=== PATIENT | female | born 1960 | race Caucasian/White ===

== ENCOUNTER 2017-12-02 17:24 | Emergency (ER) | payer OTHER ==
[2017-12-02] MEDS ORDERED: IBUPROFEN 400 MG TAB ONE (17:55)
[2017-12-02] MEDS ORDERED: HYDROCODONE/APAP 7.5/325 MG TAB ONE (18:10)
--- NOTE | 2017-12-02 18:51 | RAD REPORT ---
EXAM DESCRIPTION: RAD - Foot Left 3 View - 12/02/2017 6:26 pm CLINICAL HISTORY: Pain;Swelling COMPARISON: None FINDINGS: Mild hallux valgus is noted. Moderate soft tissue swelling is seen along the dorsum of the midfoot. A large plantar calcaneal spurs seen. No acute fracture is discerned.
[2017-12-02 18:52] LABS: Absolute Lymphocytes (CBC) 1.3 K/uL (0.7-4.9); Absolute Monocytes 0.9 K/uL (0.1-1.3); Absolute Neutrophil 7.6 K/uL (1.8-8.0); Basophils % 0.6 % (0-1.3); Eosinophils % 1.7 % (0-4.4); Hematocrit 45.3 % (36.0-45.0); Lymphocytes % 13.4 % (15.3-44.8); MCH 32.9 pg (27.0-35.0); MCV 97.7 fL (80-100); MPV 7.3 fL (7.6-11.3); Monocytes % 8.7 % (3.3-12.3); RBC Red Blood Cell Count 4.64 M/uL (3.86-4.86)
[2017-12-02 19:02] LABS: Potassium 3.5 mmol/L (3.5-5.1)
--- NOTE | 2017-12-02 19:27 | EDPHYS ---
Physician Documentation [facility] Name: Mckenna Ross Age: 57 yrs Sex: Female : 1960 Arrival Date: 12/02/2017 Time: 17:26 Bed 19 Private MD: Aury Pollock R ED Physician Ethan Morales HPI: 12/02 17:57 This 57 yrs old Female presents to ER via Ambulatory with complaints of Feet cp Swelling. 17:57 The patient presents with pain, that is acute, swelling, tenderness. The complaints cp affect the left foot. 17:57 Context: resulted from an unknown cause, Mechanism of Injury: Unknown the patient can cp fully bear weight, the patient is able to ambulate. 17:57 Onset: The symptoms/episode began/occurred 3 day(s) ago. Associated signs and symptoms: cp Pertinent positives: swelling, warmth, Pertinent negatives: calf tenderness, fever. Severity of symptoms: in the emergency department the symptoms are unchanged, despite home interventions. Historical: - Allergies: 17:36 Ativan; hb 17:36 Levaquin; hb 17:36 PENICILLINS; hb - PMHx: 17:36 High Cholesterol; Hypothyroidism; hb - PSHx: 17:36 Gastric Sleeve; hb - Immunization history:: Adult Immunizations up to date. - Social history:: Smoking status: Patient uses tobacco products, smokes one-half pack cigarettes per day. - Ebola Screening: : No symptoms or risks identified at this time. ROS: 18:00 Constitutional: Negative for body aches, chills, fever, poor PO intake. cp 18:00 Eyes: Negative for injury, pain, redness, and discharge. cp 18:00 ENT: Negative for drainage from ear(s), ear pain, sore throat, difficulty swallowing, difficulty handling secretions. 18:00 Cardiovascular: Negative for chest pain, edema, palpitations. 18:00 Respiratory: Negative for cough, shortness of breath, wheezing. 18:00 Abdomen/GI: Negative for abdominal pain, nausea, vomiting, and diarrhea, black/tarry stool, rectal bleeding. 18:00 MS/extremity: Positive for pain, of the dorsum left foot, Negative for injury or acute deformity, decreased range of motion, paresthesias. 18:00 Skin: Positive for ecchymosis, erythema, swelling, of the dorsum left foot. 18:00 Neuro: Negative for dizziness, headache, weakness. Exam: 18:07 Constitutional: The patient appears in no acute distress, alert, awake, non-toxic, well cp developed, well nourished. 18:07 Head/Face: Normocephalic, atraumatic. cp 18:07 Eyes: Periorbital structures: appear normal, Conjunctiva: normal, no exudate, no injection, Lids and lashes: appear normal, bilaterally. 18:07 ENT: External ear(s): are unremarkable, Nose: is normal, Mouth: is normal, Posterior pharynx: is normal, airway is patent. 18:07 Chest/axilla: Inspection: normal. 18:07 Cardiovascular: Rate: normal, Rhythm: regular. 18:07 Respiratory: the patient does not display signs of respiratory distress, Respirations: normal, no use of accessory muscles, no retractions, no splinting, no tachypnea. 18:07 Abdomen/GI: Exam negative for discomfort, distension, guarding, Inspection: abdomen appears normal. 18:07 Musculoskeletal/extremity: Extremities: grossly normal except: noted in the dorsum of left foot: ecchymosis, erythema, pain, swelling, tenderness, There is no evidence of decreased ROM, deformity, open wounds, Perfusion: the extremity is pink, DVT Exam: No signs of deep vein thrombosis. Vital Signs: 17:35 BP 137 / 82; Pulse 88; Resp 18; Temp 97.9; Pulse Ox 100% on R/A; Pain 9/10; hb 18:30 BP 135 / 78; Pulse 74; Resp 16; Pulse Ox 97% on R/A; Pain 4/10; em MDM: 17:37 Patient medically screened. cp 18:00 Differential diagnosis: fracture, sprain, arthritis, gout, cellulitis. cp 19:25 Data reviewed: vital signs, nurses notes, lab test result(s), radiologic studies, plain cp films. 19:25 Test interpretation: by ED physician or midlevel provider: plain radiologic studies. cp Counseling: I had a detailed discussion with the patient and/or guardian regarding: the historical points, exam findings, and any diagnostic results supporting the discharge/admit diagnosis, lab results, radiology results, the need for outpatient follow up, a family practitioner, to return to the emergency department if symptoms worsen or persist or if there are any questions or concerns that arise at home. Response to treatment: the patient's symptoms have mildly improved after treatment, and as a result, I will discharge patient. 12/02 18:31 Order name: CBC with Diff; Complete Time: 18:56 cp 12/02 18:57 Interpretation: Normal except: HGB 15.3; HCT 45.3; MPV 7.3; HANS% 75.6; LYM% 13.4. 12/02 18:31 Order name: BMP; Complete Time: 19:08 12/02 19:08 Interpretation: Normal except: CL 108; GLUC 117; GFR 74. 12/02 17:51 Order name: XRAY Foot LEFT 3 View; Complete Time: 18:56 cp 12/02 18:57 Interpretation: Reviewed report. 12/02 19:26 Order name: Misc. Order: OUTLINE AREA OF ERYTHEMA; Complete Time: 20:09 12/02 19:26 Order name: Crutches; Complete Time: 20:09 12/02 19:26 Order name: Alexandro Wrap; Complete Time: 20:09 cp Administered Medications: 18:09 Not Given (Patient Refused): Ibuprofen 800 mg PO once em 18:10 Drug: [place] (7.5 mg-325 mg) 1 tabs Route: PO; em 19:02 Follow up: Response: No adverse reaction; Pain is decreased em Disposition: 12/03 07:12 Co-signature as Attending Physician, Ethan Morales MD. rn Disposition: 12/02/17 19:26 Discharged to Home. Impression: Pain in left foot. - Condition is Stable. - Discharge Instructions: Foot Pain. - Prescriptions for Clindamycin HCl 300 mg Oral Capsule - take 1 capsule by ORAL route every 6 hours for 7 days; 28 capsule. Tramadol 50 mg Oral Tablet - take 1 tablet by ORAL route every 8 hours as needed; 15 tablet. - Medication Reconciliation Form, Thank You Letter, Antibiotic Education, Prescription Opioid Use form. - Follow up: Aury Pollock MD; When: 48 Hours; Reason: Recheck today's complaints. - Problem is new. - Symptoms have improved. Signatures: Dispatcher [employer] Real Trent, ENGRAVER PANTOGRAPH ENGRAVER PANTOGRAPH em Ethan Morales MD MD rn Juan Carlos Kern PA PA cp Klaus Ramos, RN RN ao Mari Hauser RN RN Corrections: (The following items were deleted from the chart) 12/02 20:11 19:26 12/02/2017 19:26 Discharged to Home. Impression: Pain in left foot. Condition is ao Stable. Forms are Medication Reconciliation Form, Thank You Letter, Antibiotic Education, Prescription Opioid Use. Follow up: Aury Pollock; When: 48 Hours; Reason: Recheck today's complaints. Problem is new. Symptoms have improved. cp
--- NOTE | 2017-12-02 19:27 | ER ---
Nurse's Notes [facility] Name: Mckenna Ross Age: 57 yrs Sex: Female : 1960 Arrival Date: 12/02/2017 Time: 17:26 Bed 19 Private MD: Aury Pollock R Diagnosis: Pain in left foot Presentation: 12/02 17:35 Presenting complaint: Patient states: Left foot pain, swelling, and bruising x 3 days. hb Denies injury. Transition of care: patient was not received from another setting of care. Onset of symptoms is unknown. Risk Assessment: Do you want to hurt yourself or someone else? Patient reports no desire to harm self or others. Care prior to arrival: None. 17:35 Method Of Arrival: Ambulatory hb 17:35 Acuity: RAJNI 4 hb 17:57 Initial Sepsis Screen: Does the patient meet any 2 criteria? No. Patient's initial em sepsis screen is negative. Does the patient have a suspected source of infection? No. Patient's initial sepsis screen is negative. Historical: - Allergies: 17:36 Ativan; hb 17:36 Levaquin; hb 17:36 PENICILLINS; hb - PMHx: 17:36 High Cholesterol; Hypothyroidism; hb - PSHx: 17:36 Gastric Sleeve; hb - Immunization history:: Adult Immunizations up to date. - Social history:: Smoking status: Patient uses tobacco products, smokes one-half pack cigarettes per day. - Ebola Screening: : No symptoms or risks identified at this time. Screenin:54 Abuse screen: Denies threats or abuse. Nutritional screening: No deficits noted. em Tuberculosis screening: No symptoms or risk factors identified. Fall Risk None identified. Assessment: 17:40 General: Appears in no apparent distress. comfortable, Behavior is calm, cooperative. em Pain: Complains of pain in left foot Pain currently is 8 out of 10 on a pain scale. Neuro: Level of Consciousness is awake, alert, obeys commands, Oriented to person, place, time, situation. Cardiovascular: Capillary refill is > 3 seconds in bilateral toes. Respiratory: Airway is patent Respiratory effort is even, unlabored, Respiratory pattern is regular, symmetrical. GI: Abdomen is obese. Derm: Skin is intact, Skin is pink, warm \\T\\ dry. Musculoskeletal: Range of motion: intact in all extremities. 17:45 Reassessment: I agree with previous assessment. hb 18:00 Reassessment: Patient appears in no apparent distress at this time. pt refuse pain em medication, states, "it won't do anything". 18:10 Reassessment: Patient appears in no apparent distress at this time. JUAN LUIS Rangel notified em about pt refusing medication, new orders received. 19:20 Reassessment: Patient appears in no apparent distress at this time. Patient and/or ao family updated on plan of care and expected duration. Pain level reassessed. Patient is alert, oriented x 3, equal unlabored respirations, skin warm/dry/pink. Received report from Johnson CHAMPION. 20:10 Reassessment: Dc instructions given to patient. patient agree with the POC and to ao follow up with PCP. Patient has no questions at this time. Vital Signs: 17:35 BP 137 / 82; Pulse 88; Resp 18; Temp 97.9; Pulse Ox 100% on R/A; Pain 9/10; hb 18:30 BP 135 / 78; Pulse 74; Resp 16; Pulse Ox 97% on R/A; Pain 4/10; em ED Course: 17:26 Patient arrived in ED. sb2 17:26 Aury Pollock MD is Private Physician. sb2 17:35 Triage completed. hb 17:36 Arm band placed on right wrist. hb 17:37 Juan Carlos Kern PA is PHCP. cp 17:37 Ethan Morales MD is Attending Physician. cp 17:43 Real Harrison LVN is Primary Nurse. em 17:54 Patient has correct armband on for positive identification. Bed in low position. Call em light in reach. 17:54 No provider procedures requiring assistance completed. em 18:23 X-ray completed. Portable x-ray completed in exam room. Patient tolerated procedure ml well. 18:26 XRAY Foot LEFT 3 View In Process Unspecified. EDMS 18:40 Initial lab(s) drawn, by me, sent to lab. Inserted saline lock: 20 gauge in right em antecubital area, using aseptic technique. Blood collected. 19:26 Aury Pollock MD is Referral Physician. cp 20:10 IV discontinued, intact, bleeding controlled, No redness/swelling at site. Pressure ao dressing applied. Administered Medications: 18:09 Not Given (Patient Refused): Ibuprofen 800 mg PO once em 18:10 Drug: [place] (7.5 mg-325 mg) 1 tabs Route: PO; em 19:02 Follow up: Response: No adverse reaction; Pain is decreased em Outcome: 19:26 Discharge ordered by . cp 20:09 Discharged to home via wheelchair. ao 20:09 Condition: stable 20:09 Discharge instructions given to patient, Instructed on discharge instructions, follow up and referral plans. Demonstrated understanding of instructions, follow-up care, medications, wound care, crutch walking, Prescriptions given X 2. 20:11 Patient left the ED. ao Signatures: Dispatcher [employer] EDReal Cummins, APARTMENT LEASING MANAGER APARTMENT LEASING MANAGER Niki Bradford Corey, PA PA cp Ortiz, Alex RN RN Mari Vasquez RN RN Diane Hull sb2
[2017-12-02 20:38] VITALS: TEMP 97.9
[2017-12-02 20:39] VITALS: BP 135/78; O2SAT 97
== END 2017-12-02 20:11 | disposition home or self-care (01) ==
LOC: ER 17:24
DX: M79.672 Pain in left foot (principal); Z88.1 Allergy status to other antibiotic agents; Z88.0 Allergy status to penicillin; Z88.8 Allergy status to other drugs, medicaments and biological substances; F17.210 Nicotine dependence, cigarettes, uncomplicated
CPT/HCPCS: 36415; 80048; 85025; 99284

== ENCOUNTER 2017-12-08 19:26 | Emergency (ER) | payer OTHER ==
[2017-12-08 22:05] LABS: Absolute Lymphocytes (CBC) 2.4 K/uL (0.7-4.9); Absolute Monocytes 0.9 K/uL (0.1-1.3); Absolute Neutrophil 5.8 K/uL (1.8-8.0); Basophils % 1.3 % (0-1.3); Eosinophils % 2.6 % (0-4.4); Hematocrit 47.5 % (36.0-45.0); Lymphocytes % 25.6 % (15.3-44.8); MCH 32.8 pg (27.0-35.0); MCV 96.4 fL (80-100); MPV 7.1 fL (7.6-11.3); Monocytes % 9.2 % (3.3-12.3); RBC Red Blood Cell Count 4.92 M/uL (3.86-4.86)
[2017-12-08 22:11] LABS: Protime INR 0.93
[2017-12-08 22:34] LABS: ALT/SGPT 24 U/L (12-78); AST/SGOT 23 U/L (15-37); Albumin 3.3 g/dL (3.4-5.0); Alkaline Phosphatase 98 U/L (45-117); BUN Blood Urea Nitrogen 19 mg/dL (7-18); Bicarbonate 32 mmol/L (21-32); Bilirubin Direct < 0.1 mg/dL (0-0.2); Bilirubin Total 0.3 mg/dL (0.2-1.0); Glucose Level 95 mg/dL (74-106); Magnesium 2.4 mg/dL (1.8-2.4); NT PRO-BNP 70 pg/mL (<125); Protein, Total 7.9 g/dL (6.4-8.2); Sodium Level 140 mmol/L (136-145)
--- NOTE | 2017-12-08 22:38 | RAD REPORT ---
EXAM DESCRIPTION: VAS - Extrem Venous W Compress Chip - 12/08/2017 10:10 pm CLINICAL HISTORY: Bilateral leg pain COMPARISON: None. TECHNIQUE: Real-time sonographic evaluation of the bilateral lower extremity common femoral, superfi cial femoral, popliteal and posterior tibial veins was performed. FINDINGS: Normal compressibility, flow augmentation, phasic flow and spontaneous flow are identified in the left and right lower extremity common femoral, superficial femoral, popliteal and posterior t ibial veins. No intraluminal filling defects seen. IMPRESSION: No DVT in either lower extremity.
--- NOTE | 2017-12-08 22:40 | RAD REPORT ---
EXAM DESCRIPTION: VAS - Lower Extremity Arterial Bilat - 12/08/2017 10:10 pm CLINICAL HISTORY: Leg pain COMPARISON: None. TECHNIQUE: Grayscale and Doppler evaluation of the arterial tree performed. Waveforms were obtained along the length of each lower extremity. Visual inspection of the lower extremity arterial tree perf ormed. FINDINGS: Triphasic waveform pattern seen in the right lower extremity from common femoral through t he popliteal artery. A biphasic waveform pattern was seen at the right dorsalis pedis posterior tibia l arteries. Triphasic waveform pattern was seen along the entire length of the left lower extremity. No suspicious waveform pattern. No occlusion or focal flow restricting lesion identifiable. No suspic ious velocity value. IMPRESSION: No significant atherosclerotic changes identifiable. No occlusion or flow restricting le debbi.
[2017-12-08] MEDS ORDERED: FENTANYL CITR 100 MCG/2 ML ONE (23:12)
--- NOTE | 2017-12-08 23:26 | ER ---
Nurse's Notes [facility] Name: Mckenna Ross Age: 57 yrs Sex: Female : 1960 Arrival Date: 12/08/2017 Time: 19:28 Bed 14 Private MD: Diagnosis: Pain in unspecified foot-Bilateral Presentation: 12/08 19:33 Presenting complaint: Patient states: GLADYS foot pain and swelling since the when I la1 was here last and also pain behind my right knee, no known injury. Transition of care: patient was not received from another setting of care. Onset of symptoms was December 08, 2017. Risk Assessment: Do you want to hurt yourself or someone else? Patient reports no desire to harm self or others. Initial Sepsis Screen: Does the patient meet any 2 criteria? No. Patient's initial sepsis screen is negative. Does the patient have a suspected source of infection? No. Patient's initial sepsis screen is negative. Care prior to arrival: None. 19:33 Method Of Arrival: Wheelchair la1 19:33 Acuity: RAJNI 3 la1 Historical: - Allergies: 19:34 Ativan; la1 19:34 Levaquin; la1 19:34 PENICILLINS; la1 - PMHx: 19:34 High Cholesterol; Hypothyroidism; Hypertension; la1 - Immunization history:: Adult Immunizations up to date. - Social history:: Smoking status: Patient uses tobacco products, smokes one-half pack cigarettes per day. - Ebola Screening: : No symptoms or risks identified at this time. Screenin:50 Abuse screen: Denies threats or abuse. Denies injuries from another. Nutritional ao screening: No deficits noted. Tuberculosis screening: No symptoms or risk factors identified. Fall Risk None identified. Assessment: 20:51 General: Appears in no apparent distress. comfortable, Behavior is calm, cooperative, ao appropriate for age. Pain: Complains of pain in right leg and left leg Pain does not radiate. Pain currently is 8 out of 10 on a pain scale. Neuro: Level of Consciousness is awake, alert, Oriented to person, place, time, situation, Appropriate for age Mill Tender Warm Up are Moves all extremities. Full function Gait is unsteady, Speech is normal, Facial symmetry appears normal. Cardiovascular: Capillary refill < 3 seconds Patient's skin is warm and dry. Respiratory: Airway is patent Respiratory effort is even, unlabored, Respiratory pattern is regular, symmetrical. GI: Abdomen is non-distended. : No signs and/or symptoms were reported regarding the genitourinary system. EENT: No signs and/or symptoms were reported regarding the EENT system. Derm: Skin is intact, Skin is pink, warm \T\ dry. normal, Skin temperature is warm. Musculoskeletal: Circulation, motion, and sensation intact. Range of motion: intact in all extremities. 21:15 Reassessment: Ultrasound at bedside unable to start an IV at this moment. ao 22:10 Reassessment: Patient appears in no apparent distress at this time. Patient and/or ao family updated on plan of care and expected duration. Pain level reassessed. Patient is alert, oriented x 3, equal unlabored respirations, skin warm/dry/pink. 23:05 Reassessment: Patient appears in no apparent distress at this time. Patient and/or ao family updated on plan of care and expected duration. Pain level reassessed. Patient is alert, oriented x 3, equal unlabored respirations, skin warm/dry/pink. Waiting on Dispo irders. 23:49 Reassessment: Received an verbal order from Pasquale Kern to medicate patient with Toradol ao 30 if patient is not allergic to it. Patient to be discharge after Toradol is given. Vital Signs: 19:34 BP 123 / 74; Pulse 59; Resp 19; Temp 97.2(TE); Pulse Ox 95% ; Weight 124.74 kg; Height la1 5 ft. 6 in. (167.64 cm); 20:53 BP 109 / 66; Pulse 62; Resp 16; Pulse Ox 99% on R/A; Pain 0/10; ao 21:55 BP 113 / 60; Pulse 62; Resp 16; Pulse Ox 100% on R/A; ao 23:36 BP 108 / 59; Pulse 57; Resp 16; Pulse Ox 96% on R/A; Pain 0/10; ao 19:34 Body Mass Index 44.39 (124.74 kg, 167.64 cm) la1 ED Course: 19:28 Patient arrived in ED. al2 19:33 Triage completed. la1 19:34 Arm band placed on left wrist. la1 20:33 Klaus Ramos, TASHIA is Primary Nurse. ao 20:43 Juan Carlos Kern PA is PHCP. cp 20:43 Juan Carlos Baker MD is Attending Physician. cp 20:51 Patient has correct armband on for positive identification. Pulse ox on. NIBP on. ao 21:30 Inserted saline lock: 22 gauge in right forearm, using aseptic technique. ,using ao aseptic technique. By AMANDA Nascimento Blood collected. 21:43 X-ray completed. Portable x-ray completed in exam room. Patient tolerated procedure bb2 well. 21:56 XRAY Chest (1 view) In Process Unspecified. EDMS 22:10 US LE Arterial Bilateral In Process Unspecified. EDMS 22:10 US Extremity Venous W Compression Gladys In Process Unspecified. EDMS 23:25 Paul Bryan DPM is Referral Physician. cp 23:59 No provider procedures requiring assistance completed. IV discontinued, intact, ao bleeding controlled, No redness/swelling at site. Pressure dressing applied. Administered Medications: 23:10 Drug: fentaNYL (PF) 25 mcg Route: IVP; Site: right femoral; ao 23:58 Follow up: Response: No adverse reaction; Pain is unchanged, physician notified ao 23:58 Drug: TORadol 30 mg Route: IVP; Site: right forearm; ao 23:58 Follow up: Response: Medication administered at discharge. ao Outcome: 23:26 Discharge ordered by . cp 12/09 00:00 Discharged to home via wheelchair. ao Condition: stable Discharge instructions given to patient, Instructed on discharge instructions, follow up and referral plans. Demonstrated understanding of instructions, follow-up care, medications, Prescriptions given X 2. 00:00 Patient left the ED. ao Signatures: Dispatcher [employer] EDMS Jhonny Tinoco RN RN la1 Juan Carlos Kern PA PA cp Ortiz, Alex, RN RN ao Diana Francisco bb2 Debra Trent
--- NOTE | 2017-12-08 23:26 | EDPHYS ---
Physician Documentation [facility] Name: Mckenna Ross Age: 57 yrs Sex: Female : 1960 Arrival Date: 12/08/2017 Time: 19:28 Bed 14 Private MD: ED Physician Juan Carlos Baker HPI: 12/08 21:00 This 57 yrs old Female presents to ER via Wheelchair with complaints of Feet cp Swelling. 21:00 The patient presents with pain, swelling, tenderness. The complaints affect the right cp foot and left foot. Context: resulted from an unknown cause, the patient can fully bear weight, the patient is able to ambulate, with mild difficulty, Problem is a result from a previous injury: No. Associated signs and symptoms: Pertinent positives: ecchymosis of toes on left foot, Pertinent negatives calf tenderness, fever, warmth. 21:00 Severity of symptoms: in the emergency department the symptoms are unchanged, despite cp home interventions. 21:00 The patient has been recently seen at the [facility] Emergency cp Department, last week, for similar complaints labs were performed, X-rays were performed. Historical: - Allergies: 19:34 Ativan; la1 19:34 Levaquin; la1 19:34 PENICILLINS; la1 - PMHx: 19:34 High Cholesterol; Hypothyroidism; Hypertension; la1 - Immunization history:: Adult Immunizations up to date. - Social history:: Smoking status: Patient uses tobacco products, smokes one-half pack cigarettes per day. - Ebola Screening: : No symptoms or risks identified at this time. ROS: 21:05 Constitutional: Negative for body aches, chills, fever, poor PO intake. cp 21:05 Eyes: Negative for injury, pain, redness, and discharge. cp 21:05 ENT: Negative for drainage from ear(s), ear pain, sore throat, difficulty swallowing, difficulty handling secretions. 21:05 Cardiovascular: Negative for chest pain, edema, palpitations. 21:05 Respiratory: Negative for cough, shortness of breath, wheezing. 21:05 Abdomen/GI: Negative for abdominal pain, nausea, vomiting, and diarrhea. 21:05 MS/extremity: Positive for ecchymosis, swelling, of the right foot and left foot, Negative for injury or acute deformity. 21:05 Skin: Negative for cellulitis, rash. 21:05 Neuro: Negative for altered mental status, headache, weakness. 21:05 All other systems are negative. Exam: 21:12 Constitutional: The patient appears in no acute distress, alert, awake, cp non-diaphoretic, non-toxic, well developed, well nourished, obese. 21:12 Head/Face: Normocephalic, atraumatic. cp 21:12 Eyes: Periorbital structures: appear normal, Conjunctiva: normal, no exudate, no injection, Sclera: no appreciated abnormality, Lids and lashes: appear normal, bilaterally. 21:12 ENT: External ear(s): are unremarkable, Nose: is normal, Mouth: Lips: moist, Oral mucosa: moist, Posterior pharynx: is normal, airway is patent. 21:12 Neck: ROM/movement: is normal, is supple, without pain, no range of motions limitations, no nuchal rigidity. 21:12 Chest/axilla: Inspection: normal, Palpation: is normal, no crepitus, no tenderness. 21:12 Cardiovascular: Rate: normal, Rhythm: regular, Pulses: Pulses are 2+ in right radial artery and left radial artery. Heart sounds: murmur, not appreciated, rub, not appreciated, gallop, not appreciated, JVD: is not appreciated. 21:12 Respiratory: the patient does not display signs of respiratory distress, Respirations: normal, no use of accessory muscles, no retractions, no splinting, no tachypnea, labored breathing, is not present, Breath sounds: are clear throughout, no decreased breath sounds, no stridor, no wheezing. 21:12 Abdomen/GI: Inspection: obese Bowel sounds: active, all quadrants, Palpation: abdomen is soft and non-tender, in all quadrants. 21:12 Musculoskeletal/extremity: Extremities: grossly normal except: noted in the right foot and left foot: ecchymosis, swelling, tenderness, There is no evidence of deformity, erythema, Sensation intact. 21:12 Skin: cellulitis, is not appreciated, no rash present. 21:12 Neuro: Orientation: to person, place \T\ time. Mentation: lucid, able to follow commands, Cerebellar function: is grossly normal, Motor: moves all fours, strength is normal, Sensation: no obvious gross deficits. Vital Signs: 19:34 BP 123 / 74; Pulse 59; Resp 19; Temp 97.2(TE); Pulse Ox 95% ; Weight 124.74 kg; Height la1 5 ft. 6 in. (167.64 cm); 20:53 BP 109 / 66; Pulse 62; Resp 16; Pulse Ox 99% on R/A; Pain 0/10; ao 21:55 BP 113 / 60; Pulse 62; Resp 16; Pulse Ox 100% on R/A; ao 23:36 BP 108 / 59; Pulse 57; Resp 16; Pulse Ox 96% on R/A; Pain 0/10; ao 19:34 Body Mass Index 44.39 (124.74 kg, 167.64 cm) la1 MDM: 20:43 Patient medically screened. cp 21:00 Differential diagnosis: contusion, cellulitis, chf, kidney disease, PAD, DVT. cp 23:25 Data reviewed: vital signs, nurses notes, lab test result(s), EKG, radiologic studies, cp ultrasound. 23:25 Counseling: I had a detailed discussion with the patient and/or guardian regarding: the cp historical points, exam findings, and any diagnostic results supporting the discharge/admit diagnosis, lab results, radiology results, the need for outpatient follow up, a family practitioner, to return to the emergency department if symptoms worsen or persist or if there are any questions or concerns that arise at home. Response to treatment: the patient's symptoms have mildly improved after treatment, and as a result, I will discharge patient. 12/08 21:10 Order name: LFT's; Complete Time: 22:48 cp 12/08 21:10 Order name: Basic Metabolic Panel; Complete Time: 22:48 cp 12/08 21:10 Order name: CBC with Diff; Complete Time: 22:48 cp 12/08 21:10 Order name: Magnesium; Complete Time: 22:48 cp 12/08 21:10 Order name: NT PRO-BNP; Complete Time: 22:48 cp 12/08 21:10 Order name: PT-INR; Complete Time: 22:48 cp 12/08 20:53 Order name: US LE Arterial Bilateral; Complete Time: 22:48 cp 12/08 20:53 Order name: US Extremity Venous W Compression Chip; Complete Time: 22:48 cp 12/08 21:10 Order name: Ptt, Activated; Complete Time: 22:48 cp 12/08 21:10 Order name: Troponin (emerg Dept Use Only); Complete Time: 22:48 cp 12/08 21:10 Order name: XRAY Chest (1 view) 12/08 21:10 Order name: EKG; Complete Time: 21:10 12/08 21:10 Order name: Cardiac monitoring; Complete Time: 22:22 12/08 21:10 Order name: EKG - Nurse/Tech; Complete Time: 22:22 12/08 21:10 Order name: IV Saline Lock; Complete Time: 22:22 12/08 21:10 Order name: Labs collected and sent; Complete Time: 22:22 12/08 21:10 Order name: O2 Per Protocol; Complete Time: 22:22 12/08 21:10 Order name: O2 Sat Monitoring; Complete Time: 22:22 cp Administered Medications: 23:10 Drug: fentaNYL (PF) 25 mcg Route: IVP; Site: right femoral; ao 23:58 Follow up: Response: No adverse reaction; Pain is unchanged, physician notified ao 23:58 Drug: TORadol 30 mg Route: IVP; Site: right forearm; ao 23:58 Follow up: Response: Medication administered at discharge. ao Disposition: 12/08/17 23:26 Discharged to Home. Impression: Pain in unspecified foot - Bilateral. - Condition is Stable. - Discharge Instructions: Foot Pain. - Prescriptions for Tramadol 50 mg Oral Tablet - take 1 tablet by ORAL route every 8 hours as needed; 15 tablet. Mobic 7.5 mg Oral Tablet - take 1 tablet by ORAL route once daily take with food; 20 tablet. - Medication Reconciliation Form, Thank You Letter, Antibiotic Education, Prescription Opioid Use form. - Follow up: Paul Bryan DPM; When: 2 - 3 days; Reason: Recheck today's complaints. - Problem is an ongoing problem. - Symptoms have improved. Addendum: 12/11/2017 08:58 Co-signature as Attending Physician, Juan Carlos Baker MD I agree with the assessment and c fritz plan of care. Signatures: Dispatcher [employer] EDJuan Carlos Lewis MD MD cha Attema, Lee RN RN la1 Juan Carlos Kern PA PA cp Ortiz, Alex RN RN ao Corrections: (The following items were deleted from the chart) 12/08 23:59 21:10 Urine Dipstick-Ancillary ordered. cp ao 12/09 00:00 12/08 23:26 12/08/2017 23:26 Discharged to Home. Impression: Pain in unspecified foot - ao Bilateral. Condition is Stable. Forms are Medication Reconciliation Form, Thank You Letter, Antibiotic Education, Prescription Opioid Use. Follow up: Paul Bryan; When: 2 - 3 days; Reason: Recheck today's complaints. Problem is an ongoing problem. Symptoms have improved. cp
[2017-12-08] MEDS ORDERED: KETOROLAC 30 MG/ML INJ ONE (23:52)
[2017-12-09 00:30] VITALS: TEMP 97.2
[2017-12-09 00:33] VITALS: BP 108/59; O2SAT 96
--- NOTE | 2017-12-09 06:02 | EKG ---
Test Date: 2017-12-08 Test Time: 22:03:28 Grinder Operator Automatic: ZACARIAS MEASUREMENT RESULTS: Intervals: Rate: 49 NV: 198 QRSD: 80 QT: 464 QTc: 419 [place]: P: 23 NV: 198 QRS: 3 T: 16 INTERPRETIVE STATEMENTS: Sinus bradycardia Otherwise normal ECG Compared to ECG 12/26/2016 13:37:58 No significant changes Electronically Signed On 12-09-17 06:01:21 CDT by Mauri Meza
--- NOTE | 2017-12-09 08:27 | RAD REPORT ---
EXAM DESCRIPTION: Shaka Single View12/08/2017 9:55 pm CLINICAL HISTORY: Shortness of breath COMPARISON: December 2016 FINDINGS: The lungs appear clear of acute infiltrate. The heart is mildly enlarged IMPRESSION: No acute abnormalities displayed
--- NOTE | 2017-12-10 07:48 | EKG ---
Test Date: 2017-12-08 Test Time: 22:05:53 Brick Tester: ZACARIAS MEASUREMENT RESULTS: Intervals: Rate: 51 MI: 200 QRSD: 80 QT: 496 QTc: 457 [place]: P: 21 MI: 200 QRS: 1 T: 39 INTERPRETIVE STATEMENTS: Sinus bradycardia Otherwise normal ECG Compared to ECG 12/08/2017 22:03:28 No significant changes Electronically Signed On 12-10-17 07:45:35 CDT by Mauri Meza
== END 2017-12-09 | disposition home or self-care (01) ==
LOC: ER 19:26
DX: M79.672 Pain in left foot (principal); M79.671 Pain in right foot; Z88.3 Allergy status to other anti-infective agents; Z88.0 Allergy status to penicillin; Z88.8 Allergy status to other drugs, medicaments and biological substances; F17.210 Nicotine dependence, cigarettes, uncomplicated; E78.00 Pure hypercholesterolemia, unspecified; E03.9 Hypothyroidism, unspecified; I10 Essential (primary) hypertension
CPT/HCPCS: 36415; 71045; 80048; 80076; 83735; 83880; 84484; 85025; 85610; 85730; 93005; 93925; 93970; 99284; J3010

== ENCOUNTER 2018-01-07 02:13 | Emergency (ER) | payer OTHER ==
--- NOTE | 2018-01-07 02:53 | ER ---
Nurse's Notes [facility] Name: Mckenna Ross Age: 57 yrs Sex: Female : 1960 Arrival Date: 01/07/2018 Time: 02:16 Bed 14 Private MD: Diagnosis: Unspecified psychosis not due to a substance or known physiological condition Presentation: 01/07 02:16 Presenting complaint: EMS states: [place] Pt is tl2 having auditory and visual hallucinations, stated she was trying to get stopped by police because there were people in her car trying to kill her. Pt denies suicidal or homicidal thoughts. Transition of care: patient was not received from another setting of care. Onset of symptoms was January 07, 2018. Risk Assessment: Do you want to hurt yourself or someone else? Patient reports no desire to harm self or others. Initial Sepsis Screen: Does the patient meet any 2 criteria? No. Patient's initial sepsis screen is negative. Does the patient have a suspected source of infection? No. Patient's initial sepsis screen is negative. Care prior to arrival: None. 02:16 Method Of Arrival: EMS: [facility] tl2 02:16 Acuity: RAJNI 2 tl2 Triage Assessment: 02:25 General: Appears distressed, Behavior is agitated, restless, uncooperative. Pain: tl2 Denies pain. Neuro: Level of Consciousness is awake, alert, Oriented to person, place, time. Cardiovascular: Denies chest pain. Respiratory: Airway is patent Respiratory effort is even, unlabored, Respiratory pattern is regular, symmetrical. GI: No signs and/or symptoms were reported involving the gastrointestinal system. : No signs and/or symptoms were reported regarding the genitourinary system. Derm: Skin is normal. Historical: - Allergies: 02:25 Ativan; tl2 02:25 Levaquin; tl2 02:25 PENICILLINS; tl2 - Home Meds: 02:25 Potassium Chloride Oral [Active]; amitriptyline 50 mg Oral tab 1 tab once daily tl2 [Active]; meloxicam 7.5 mg oral tab 1 tab once daily [Active]; gabapentin 300 mg oral cap 1 cap 3 times per day [Active]; furosemide 40 mg Oral tab 1 tab once daily [Active]; levothyroxine 100 mcg tab 1 tab once daily [Active]; prednisone 10 mg Oral tab once daily [Active]; rosuvastatin 20 mg oral tab 1 tab once daily [Active]; alprazolam 2 mg Oral Tb24 1 tab once daily [Active]; - PMHx: 02:25 High Cholesterol; Hypertension; Hypothyroidism; CHF; COPD; tl2 - Immunization history:: Adult Immunizations up to date. - Social history:: Smoking status: Patient uses tobacco products, smokes one-half pack cigarettes per day. - Ebola Screening: : No symptoms or risks identified at this time. Screenin:27 Abuse screen: Denies threats or abuse. Nutritional screening: No deficits noted. tl2 Tuberculosis screening: No symptoms or risk factors identified. Fall Risk None identified. Assessment: 02:25 General: see triage assessment. tl2 03:13 Reassessment: Pt was evaluated by Dr. Holloway and placed up for discharge. Pt has tl2 appeared to calm down but is still having paranoid delusions. When notified that she was being discharged pt was agreeable and stated she felt better. Charge nurse stated to discharge pt to [facility]. Psych: 02:27 Subjective: Patient's mood is elevated, Delusions are paranoid Hallucinations are tl2 auditory, visual. Objective: Patient is restless, Speech is rapid, Affect is inappropriate. Interventions: Removed personal items and placed in bag. Patient placed in hospital gown. Suicide Risk Assessment: Sad Person Scale: Sex of patient: Female: Score 0 points. Age of patient: Score 0 point if patient falls outside of specified age parameters. Depression: Score 1 point if signs of depression are present. Previous Attempt: Score 0 point if patient has not previously attempted suicide. Substance Abuse: Score 0 point if patient does not abuse alcohol or drugs. Rational Thinking: Score 1 point if patient is lacking rational thinking. Social Support: Organized Plan: Score 0 if patient did not have an organized plan in place. Relationship: Score 1 point if patient is , , , or for a single male Chronic Sickness: Score 1 point if patient has illness, chronic, debilitating, or severe. TOTAL POINTS: If total points are 3-4, proposed clinical action is close follow-up/consider hospitalization. Safety Checks: Personal items have been removed. Door is open. No visitors are present at this time. Pt denies substance abuse. 03:13 Commitment: N/A. tl2 Vital Signs: 02:25 BP 103 / 75; Pulse 117; Resp 22; Temp 99.4(O); Pulse Ox 96% on R/A; Weight 127.01 kg; tl2 Height 5 ft. 6 in. (167.64 cm); Pain 0/10; 02:25 Body Mass Index 45.19 (127.01 kg, 167.64 cm) tl2 ED Course: 02:16 Patient arrived in ED. tl2 02:18 Triage completed. tl2 02:20 Bakari Holloway MD is Attending Physician. gs 02:25 Arm band placed on right wrist. tl2 02:25 No provider procedures requiring assistance completed. Patient did not have IV access tl2 during this emergency room visit. 02:27 Patient has correct armband on for positive identification. Placed in gown. Bed in low tl2 position. Call light in reach. Side rails up X2. 03:09 Jessica Arteaga RN is Primary Nurse. tl2 Administered Medications: No medications were administered Outcome: 02:52 Discharge ordered by . 03:13 Discharged to [facility] tl2 03:13 Condition: stable 03:13 Discharge instructions given to patient, Instructed on discharge instructions, follow up and referral plans. 03:14 Patient left the ED. tl2 Signatures: Jessica Arteaga RN RN 2 Bakari Holloway MD MD Corrections: (The following items were deleted from the chart) 03:13 02:25 Discharged to [facility] tl2 tl2 03:13 02:25 Condition: stable tl2 tl2 03:13 02:25 Discharge instructions given to patient, Instructed on discharge instructions, tl2 follow up and referral plans. tl2 03:13 02:25 Reassessment: Pt was evaluated by Dr. Holloway and placed up for discharge. Pt has tl2 appeared to calm down but is still having paranoid delusions. When notified that she was being discharged pt was agreeable and stated she felt better. Charge nurse stated to discharge pt to [facility]. tl2
--- NOTE | 2018-01-07 02:53 | EDPHYS ---
Physician Documentation [facility] Name: Mckenna Ross Age: 57 yrs Sex: Female : 1960 Arrival Date: 01/07/2018 Time: 02:16 Bed 14 Private MD: ED Physician Bakari Holloway HPI: 01/07 02:46 This 57 yrs old Female presents to ER via EMS with complaints of Psych gs Problem. 02:46 The patient presents to the emergency department with paranoia, psychosis, has gs delusions. Onset: The symptoms/episode began/occurred today. Associated signs and symptoms: Pertinent positives; delusions, depression, paranoia, Pertinent negatives: substance abuse, suicide ideation. Severity of symptoms: At their worst the symptoms were moderate in the emergency department the symptoms are unchanged. The patient has experienced similar episodes in the past, chronically. Historical: - Allergies: 02:25 Ativan; tl2 02:25 Levaquin; tl2 02:25 PENICILLINS; tl2 - Home Meds: 02:25 Potassium Chloride Oral [Active]; amitriptyline 50 mg Oral tab 1 tab once daily tl2 [Active]; meloxicam 7.5 mg oral tab 1 tab once daily [Active]; gabapentin 300 mg oral cap 1 cap 3 times per day [Active]; furosemide 40 mg Oral tab 1 tab once daily [Active]; levothyroxine 100 mcg tab 1 tab once daily [Active]; prednisone 10 mg Oral tab once daily [Active]; rosuvastatin 20 mg oral tab 1 tab once daily [Active]; alprazolam 2 mg Oral Tb24 1 tab once daily [Active]; - PMHx: 02:25 High Cholesterol; Hypertension; Hypothyroidism; CHF; COPD; tl2 - Immunization history:: Adult Immunizations up to date. - Social history:: Smoking status: Patient uses tobacco products, smokes one-half pack cigarettes per day. - Ebola Screening: : No symptoms or risks identified at this time. ROS: 02:46 All other systems are negative. gs Exam: 02:46 Head/Face: Normocephalic, atraumatic. Eyes: Pupils equal round and reactive to light, gs extra-ocular motions intact. Lids and lashes normal. Conjunctiva and sclera are non-icteric and not injected. Cornea within normal limits. Periorbital areas with no swelling, redness, or edema. ENT: Nares patent. No nasal discharge, no septal abnormalities noted. Tympanic membranes are normal and external auditory canals are clear. Oropharynx with no redness, swelling, or masses, exudates, or evidence of obstruction, uvula midline. Mucous membranes moist. Neck: Trachea midline, no thyromegaly or masses palpated, and no cervical lymphadenopathy. Supple, full range of motion without nuchal rigidity, or vertebral point tenderness. No Meningismus. Chest/axilla: Normal chest wall appearance and motion. Nontender with no deformity. No lesions are appreciated. 02:46 Respiratory: Lungs have equal breath sounds bilaterally, clear to auscultation and percussion. No rales, rhonchi or wheezes noted. No increased work of breathing, no retractions or nasal flaring. Abdomen/GI: Soft, non-tender, with normal bowel sounds. No distension or tympany. No guarding or rebound. No evidence of tenderness throughout. Back: No spinal tenderness. No costovertebral tenderness. Full range of motion. Skin: Warm, dry with normal turgor. Normal color with no rashes, no lesions, and no evidence of cellulitis. MS/ Extremity: Pulses equal, no cyanosis. Neurovascular intact. Full, normal range of motion. Neuro: Awake and alert, GCS 15, oriented to person, place, time, and situation. Cranial nerves II-XII grossly intact. Motor strength 5/5 in all extremities. Sensory grossly intact. Cerebellar exam normal. Normal gait. 02:46 Constitutional: The patient appears alert, awake. 02:46 Cardiovascular: Rate: tachycardic, Rhythm: regular, Pulses: no pulse deficits are appreciated. 02:46 Psych: Affect is animated, Oriented to person, place, time, Patient has no thoughts/intents to harm self or others. Delusions/hallucinations are present and described as says she put away someone in care home that wants to kill her, she states she picked up that person and was in her car. was pulled over by police and only pt was in car. she has no explanation where they went pt has very little insight.. Vital Signs: 02:25 BP 103 / 75; Pulse 117; Resp 22; Temp 99.4(O); Pulse Ox 96% on R/A; Weight 127.01 kg; tl2 Height 5 ft. 6 in. (167.64 cm); Pain 0/10; 02:25 Body Mass Index 45.19 (127.01 kg, 167.64 cm) tl2 MDM: 02:37 Patient medically screened. 02:46 Data reviewed: vital signs, nurses notes. gs Administered Medications: No medications were administered Disposition: 01/07/18 02:52 Discharged to Home. Impression: Unspecified psychosis not due to a substance or known physiological condition. - Condition is Stable. - Discharge Instructions: Psychosis. - Medication Reconciliation Form, Thank You Letter, Antibiotic Education, Prescription Opioid Use form. - Follow up: Private Physician; When: 2 - 3 days; Reason: Recheck today's complaints, Re-evaluation by your physician. Signatures: Jessica Arteaga RN RN 2 Bakari Holloway MD MD Corrections: (The following items were deleted from the chart) 03:14 02:52 01/07/2018 02:52 Discharged to Home. Impression: Unspecified psychosis not due to tl2 a substance or known physiological condition. Condition is Stable. Forms are Medication Reconciliation Form, Thank You Letter, Antibiotic Education, Prescription Opioid Use. Follow up: Private Physician; When: 2 - 3 days; Reason: Recheck today's complaints, Re-evaluation by your physician. gs
[2018-01-07 03:20] VITALS: BP 103/75; TEMP 99.4; O2SAT 96
== END 2018-01-07 03:14 | disposition home or self-care (01) ==
LOC: ER 02:13
DX: F29 Unspecified psychosis not due to a substance or known physiological condition (principal); I10 Essential (primary) hypertension; I50.9 Heart failure, unspecified; E03.9 Hypothyroidism, unspecified; E78.00 Pure hypercholesterolemia, unspecified; F17.210 Nicotine dependence, cigarettes, uncomplicated; Z88.0 Allergy status to penicillin; Z88.1 Allergy status to other antibiotic agents; Z88.8 Allergy status to other drugs, medicaments and biological substances
CPT/HCPCS: 99284

== ENCOUNTER 2018-09-30 22:32 | Emergency (ER) | payer OTHER ==
--- OUTSIDE RECORDS SUMMARY | 2018-09-30 22:35 | XMS REPORT ---
:1960 [facility] Address [address] [place] [address] [address]. [address] [place] [address] Care Team Providers Name Role Phone Unavailable Unavailable Unavailable Problems This patient has no known problems. Allergies, Adverse Reactions, Alerts This patient has no known allergies or adverse reactions. Medications This patient has no known medications.
[2018-09-30] MEDS ORDERED: ALPRAZOLAM 1 MG TABLET ONE (23:24)
--- NOTE | 2018-09-30 23:42 | EDPHYS ---
Physician Documentation [facility] Name: Mckenna Ross Age: 58 yrs Sex: Female : 1960 Arrival Date: 09/30/2018 Time: 22:35 Bed 16 Private MD: ED Physician Bradley Vo HPI: 09/30 23:12 This 58 yrs old Female presents to ER via Ambulatory with complaints of Knee snw Pain. 23:12 The patient presents with pain, that is acute. The complaints affect the left knee. snw Context: The problem was sustained at home, resulted from an unknown cause, the patient can fully bear weight, the patient is able to ambulate. Onset: The symptoms/episode began/occurred at an unknown time. Associated signs and symptoms: Pertinent positives: swelling, Pertinent negatives calf tenderness. Treatment prior to arrival includes: no previous treatment. Severity of symptoms: At their worst the symptoms were moderate. It is unknown whether or not the patient has had similar symptoms in the past. pt states she was seen at [facility] yesterday. Historical: - Allergies: 22:57 Ativan; aa1 22:57 Levaquin; aa1 22:57 PENICILLINS; aa1 - Home Meds: 22:57 alprazolam 2 mg Oral Tb24 1 tab once daily [Active]; amitriptyline 50 mg Oral tab 1 tab aa1 once daily [Active]; furosemide 40 mg Oral tab 1 tab once daily [Active]; gabapentin 300 mg Oral cap 1 cap 3 times per day [Active]; levothyroxine 100 mcg tab 1 tab once daily [Active]; meloxicam 7.5 mg Oral tab 1 tab once daily [Active]; Potassium Chloride Oral [Active]; prednisone 10 mg Oral tab once daily [Active]; rosuvastatin 20 mg Oral tab 1 tab once daily [Active]; - PMHx: 22:57 CHF; COPD; High Cholesterol; Hypertension; Hypothyroidism; DVT; aa1 - PSHx: 22:57 Hernia repair; Hysterectomy; aa1 - Immunization history:: Flu vaccine is not up to date. - Social history:: Smoking status: Patient uses tobacco products, smokes one-half pack cigarettes per day. - Ebola Screening: : No symptoms or risks identified at this time. ROS: 23:08 Constitutional: Negative for fever, chills, and weight loss, Eyes: Negative for injury, snw pain, redness, and discharge, ENT: Negative for injury, pain, and discharge, Neck: Negative for injury, pain, and swelling, Cardiovascular: Negative for chest pain, palpitations, and edema, Respiratory: Negative for shortness of breath, cough, wheezing, and pleuritic chest pain, Abdomen/GI: Negative for abdominal pain, nausea, vomiting, diarrhea, and constipation, Back: Negative for injury and pain, : Negative for injury, bleeding, discharge, and swelling, Skin: Negative for injury, rash, and discoloration, Neuro: Negative for headache, weakness, numbness, tingling, and seizure, Psych: Negative for depression, anxiety, suicide ideation, homicidal ideation, and hallucinations. 23:08 MS/extremity: Positive for decreased range of motion, pain, swelling, tenderness, of the anterior left knee. Exam: 23:08 Head/Face: Normocephalic, atraumatic. Eyes: Pupils equal round and reactive to light, snw extra-ocular motions intact. Lids and lashes normal. Conjunctiva and sclera are non-icteric and not injected. Cornea within normal limits. Periorbital areas with no swelling, redness, or edema. ENT: Nares patent. No nasal discharge, no septal abnormalities noted. Tympanic membranes are normal and external auditory canals are clear. Oropharynx with no redness, swelling, or masses, exudates, or evidence of obstruction, uvula midline. Mucous membranes moist. Neck: Trachea midline, no thyromegaly or masses palpated, and no cervical lymphadenopathy. Supple, full range of motion without nuchal rigidity, or vertebral point tenderness. No Meningismus. Chest/axilla: Normal chest wall appearance and motion. Nontender with no deformity. No lesions are appreciated. 23:08 Abdomen/GI: Soft, non-tender, with normal bowel sounds. No distension or tympany. No guarding or rebound. No evidence of tenderness throughout. Back: No spinal tenderness. No costovertebral tenderness. Full range of motion. Skin: Warm, dry with normal turgor. Normal color with no rashes, no lesions, and no evidence of cellulitis. Neuro: Awake and alert, GCS 15, oriented to person, place, time, and situation. Cranial nerves II-XII grossly intact. Motor strength 5/5 in all extremities. Sensory grossly intact. Cerebellar exam normal. Normal gait. Psych: Awake, alert, with orientation to person, place and time. Behavior, mood, and affect are within normal limits. 23:08 Constitutional: The patient appears awake, obese, restless, unkempt, manic 23:08 Cardiovascular: Rate: tachycardic, Rhythm: regular. 23:08 Respiratory: the patient does not display signs of respiratory distress, Respirations: normal, Breath sounds: + upper airway congestion. 23:08 Musculoskeletal/extremity: Extremities: grossly normal except: noted in the left knee: decreased ROM, pain, ROM: no acute changes, Circulation is intact in all extremities. Sensation intact. Vital Signs: 22:57 BP 144 / 108; Pulse 103; Resp 20; Temp 98.4; Pulse Ox 97% on R/A; Weight 129.27 kg; aa1 Height 5 ft. 6 in. (167.64 cm); Pain 8/10; 23:00 BP 141 / 79; Pulse 74; Resp 20; Pulse Ox 94% on R/A; tl2 23:45 BP 159 / 91; Pulse 77; Resp 19; Pulse Ox 95% on R/A; mt 22:57 Body Mass Index 46.00 (129.27 kg, 167.64 cm) aa1 MDM: 22:46 Patient medically screened. snw 23:45 Data reviewed: vital signs, nurses notes. Data interpreted: Pulse oximetry: on room air snw is 97 %. Interpretation: normal. Counseling: I had a detailed discussion with the patient and/or guardian regarding: the historical points, exam findings, and any diagnostic results supporting the discharge/admit diagnosis, radiology results, the need for outpatient follow up, to return to the emergency department if symptoms worsen or persist or if there are any questions or concerns that arise at home. Special discussion: Based on the history and exam findings, there is no indication for further emergent testing or inpatient evaluation. I discussed with the patient/guardian the need to see the orthopedic surgeon for further evaluation of the symptoms. I discussed with the patient/guardian the need to see the primary care provider for further evaluation of the symptoms. 09/30 22:54 Order name: Chest Single View XRAY snw 09/30 22:54 Order name: Knee Left 3 View XRAY snw Administered Medications: 23:13 Drug: ALPRAZolam Tablet 1 mg Route: PO; tl2 10/01 00:01 Follow up: Response: No adverse reaction tl2 00:01 Drug: TORadol 30 mg Route: IM; Site: left deltoid; tl2 00:01 Follow up: Response: No adverse reaction; Medication administered at discharge. tl2 Disposition: 09/30/18 23:42 Discharged to Home. Impression: Pain in left knee. - Condition is Stable. - Discharge Instructions: Musculoskeletal Pain, Knee Pain, Cryotherapy, [id number], Heat Therapy. - Medication Reconciliation Form, Thank You Letter, Antibiotic Education, Prescription Opioid Use form. - Follow up: Private Physician; When: 1 - 2 days; Reason: Recheck today's complaints, Continuance of care, Re-evaluation by your physician. Follow up: Emergency Department; When: As needed; Reason: Worsening of condition. Signatures: Dispatcher [employer] EDRhonda Byers RN RN aa1 Alicia Dougherty, MECHANICAL RESEARCH ENGINEER-C MECHANICAL RESEARCH ENGINEER-Csnw Jessica Arteaga RN RN tl2 Corrections: (The following items were deleted from the chart) 00:04 09/30 23:42 09/30/2018 23:42 Discharged to Home. Impression: Pain in left knee. tl2 Condition is Stable. Forms are Medication Reconciliation Form, Thank You Letter, Antibiotic Education, Prescription Opioid Use. Follow up: Private Physician; When: 1 - 2 days; Reason: Recheck today's complaints, Continuance of care, Re-evaluation by your physician. Follow up: Emergency Department; When: As needed; Reason: Worsening of condition. snw
--- NOTE | 2018-09-30 23:42 | ER ---
Nurse's Notes [facility] Name: Mckenna Ross Age: 58 yrs Sex: Female : 1960 Arrival Date: 09/30/2018 Time: 22:35 Bed 16 Private MD: Diagnosis: Pain in left knee Presentation: 09/30 22:48 Presenting complaint: Patient states: swelling in L foot and knee since yesterday. aa1 Denies injury. Reports hx of CHF and DVT. Transition of care: patient was not received from another setting of care. Onset of symptoms was September 29, 2018. Risk Assessment: Do you want to hurt yourself or someone else? Patient reports no desire to harm self or others. Initial Sepsis Screen: Does the patient meet any 2 criteria? No. Patient's initial sepsis screen is negative. Does the patient have a suspected source of infection? No. Patient's initial sepsis screen is negative. Care prior to arrival: None. 22:48 Method Of Arrival: Ambulatory aa1 22:48 Acuity: RAJNI 3 aa1 Triage Assessment: 22:57 General: Appears in no apparent distress. comfortable, Behavior is calm, cooperative, aa1 appropriate for age. Historical: - Allergies: 22:57 Ativan; aa1 22:57 Levaquin; aa1 22:57 PENICILLINS; aa1 - Home Meds: 22:57 alprazolam 2 mg Oral Tb24 1 tab once daily [Active]; amitriptyline 50 mg Oral tab 1 tab aa1 once daily [Active]; furosemide 40 mg Oral tab 1 tab once daily [Active]; gabapentin 300 mg Oral cap 1 cap 3 times per day [Active]; levothyroxine 100 mcg tab 1 tab once daily [Active]; meloxicam 7.5 mg Oral tab 1 tab once daily [Active]; Potassium Chloride Oral [Active]; prednisone 10 mg Oral tab once daily [Active]; rosuvastatin 20 mg Oral tab 1 tab once daily [Active]; - PMHx: 22:57 CHF; COPD; High Cholesterol; Hypertension; Hypothyroidism; DVT; aa1 - PSHx: 22:57 Hernia repair; Hysterectomy; aa1 - Immunization history:: Flu vaccine is not up to date. - Social history:: Smoking status: Patient uses tobacco products, smokes one-half pack cigarettes per day. - Ebola Screening: : No symptoms or risks identified at this time. Screenin:40 Abuse screen: Denies threats or abuse. Nutritional screening: No deficits noted. tl2 Tuberculosis screening: No symptoms or risk factors identified. Fall Risk None identified. Assessment: 23:00 General: Appears in no apparent distress. uncomfortable, Behavior is anxious, restless. tl2 Pain: Complains of pain in left leg and left knee. Neuro: Level of Consciousness is awake, alert, obeys commands, Oriented to person, place, time, situation. Respiratory: Airway is patent Respiratory effort is even, unlabored, Respiratory pattern is regular, symmetrical. GI: No deficits noted. : No deficits noted. Derm: Skin is diaphoretic. Musculoskeletal: Circulation, motion, and sensation intact. 10/01 00:02 Reassessment: Patient appears in no apparent distress at this time. Patient and/or tl2 family updated on plan of care and expected duration. Pain level reassessed. Patient is alert, oriented x 3, equal unlabored respirations, skin warm/dry/pink. pt verbalized understanding of discharge instructions, need for follow up. Pt ambulatory out of ER. Vital Signs: 09/30 22:57 BP 144 / 108; Pulse 103; Resp 20; Temp 98.4; Pulse Ox 97% on R/A; Weight 129.27 kg; aa1 Height 5 ft. 6 in. (167.64 cm); Pain 8/10; 23:00 BP 141 / 79; Pulse 74; Resp 20; Pulse Ox 94% on R/A; tl2 23:45 BP 159 / 91; Pulse 77; Resp 19; Pulse Ox 95% on R/A; mt 22:57 Body Mass Index 46.00 (129.27 kg, 167.64 cm) aa1 ED Course: 22:35 Patient arrived in ED. ag3 22:45 Jessica Arteaga RN is Primary Nurse. tl2 22:45 Alicia Dougherty FNP-C is PHCP. snw 22:45 Bradley Vo MD is Attending Physician. snw 22:49 Triage completed. aa1 22:57 Arm band placed on left wrist. Patient placed in an exam room, on a stretcher. aa1 23:00 Patient has correct armband on for positive identification. Bed in low position. Call tl2 light in reach. Side rails up X2. 23:25 X-ray completed. Portable x-ray completed in exam room. Patient tolerated procedure kw well. 23:28 Chest Single View XRAY In Process Unspecified. EDMS 23:28 Knee Left 3 View XRAY In Process Unspecified. EDMS 10/01 00:03 No provider procedures requiring assistance completed. Patient did not have IV access tl2 during this emergency room visit. Administered Medications: 09/30 23:13 Drug: ALPRAZolam Tablet 1 mg Route: PO; tl2 10/01 00:01 Follow up: Response: No adverse reaction tl2 00:01 Drug: TORadol 30 mg Route: IM; Site: left deltoid; tl2 00:01 Follow up: Response: No adverse reaction; Medication administered at discharge. tl2 Outcome: 09/30 23:42 Discharge ordered by . snw 10/01 00:03 Discharged to home ambulatory. tl2 Condition: stable Discharge instructions given to patient, Instructed on discharge instructions, follow up and referral plans. Demonstrated understanding of instructions, follow-up care. 00:04 Patient left the ED. tl2 Signatures: Dispatcher [employer] Rhonda Ramirez RN RN aa1 Alicia Dougherty, CLINICAL SERVICES DIRECTOR-C CLINICAL SERVICES DIRECTOR-Csnw Zainab Bradley Taylor, RN RN tl2 Adriane Charles mt, Alice ag3 Corrections: (The following items were deleted from the chart) 09/30 23:46 23:00 BP 141 / 79; Pulse 90bpm; Resp 20bpm; Pulse Ox 97% RA; tl2 tl2 10/01 00:03 00:02 Reassessment: Patient appears in no apparent distress at this time. Patient tl2 and/or family updated on plan of care and expected duration. Pain level reassessed. Patient is alert, oriented x 3, equal unlabored respirations, skin warm/dry/pink. pt verbalized understanding of discharge instructions, need for follow up tl2
[2018-10-01] MEDS ORDERED: KETOROLAC 30 MG/ML INJ ONE (00:09)
[2018-10-01 00:39] VITALS: TEMP 98.4
[2018-10-01 00:42] VITALS: BP 159/91; O2SAT 95
--- NOTE | 2018-10-01 08:58 | RAD REPORT ---
EXAM DESCRIPTION: RAD - Chest Single View - 09/30/2018 11:25 pm CLINICAL HISTORY: Shortness of breath, lower extremity swelling COMPARISON: November 2017 TECHNIQUE: AP portable chest image was obtained 2319 hours . FINDINGS: Lungs are clear. Heart and vasculature are normal. No measurable pleural effusion and no p neumothorax. No acute bony abnormality seen. No acute aortic findings suspected. IMPRESSION: No acute cardiopulmonary process.
--- NOTE | 2018-10-01 08:58 | RAD REPORT ---
EXAM DESCRIPTION: RAD - Knee Left 3 View - 09/30/2018 11:25 pm CLINICAL HISTORY: Nontraumatic left knee pain COMPARISON: None. FINDINGS: No fracture, dislocation or periosteal reaction.Minimal joint effusion is present. Medial compartment narrowing present. Medial compartment and lateral compartment marginal spurs are present. Very minimal marginal spurring along the patella articular margins. No soft tissue abnormality. IMPRESSION: Moderately advanced for age degenerative change to the left knee. No acute bone finding. Minimal joint effusion. Clinical concerns for internal derangement or occult bony injury could be further assessed with MR im aging.
== END 2018-10-01 00:04 | disposition home or self-care (01) ==
LOC: ER 22:32
DX: M25.562 Pain in left knee (principal); I10 Essential (primary) hypertension; E03.9 Hypothyroidism, unspecified; E78.00 Pure hypercholesterolemia, unspecified; J44.9 Chronic obstructive pulmonary disease, unspecified; I50.9 Heart failure, unspecified; Z88.0 Allergy status to penicillin; Z88.6 Allergy status to analgesic agent
CPT/HCPCS: 71045; 96372; 99283

== ENCOUNTER 2018-10-14 19:13 | Emergency (ER) | payer OTHER ==
--- OUTSIDE RECORDS SUMMARY | 2018-10-14 19:16 | XMS REPORT ---
:1960 Author Organization [facility] Address [address] [place] [address] [address]. [address] [place] [address] Care Team Providers Name Role Phone Unavailable Unavailable Unavailable Problems This patient has no known problems. Allergies, Adverse Reactions, Alerts This patient has no known allergies or adverse reactions. Medications This patient has no known medications.
[2018-10-14 20:17] LABS: Absolute Lymphocytes (CBC) 2.2 K/uL (0.7-4.9); Basophils % 1.4 % (0-1.3); Eosinophils % 2.3 % (0-4.4); Lymphocytes % 24.9 % (15.3-44.8); MPV 7.4 fL (7.6-11.3); Monocytes % 9.1 % (3.3-12.3); RBC Red Blood Cell Count 4.86 M/uL (3.86-4.86)
[2018-10-14 20:22] LABS: Protime INR 0.88
[2018-10-14] MEDS ORDERED: ONDANSETRON 4 MG/2 ML VIAL ONE (20:35)
[2018-10-14] MEDS ORDERED: FENTANYL CITR 100 MCG/2 ML ONE (20:35)
[2018-10-14 20:41] LABS: ALT/SGPT 20 U/L (12-78); AST/SGOT 19 U/L (15-37); Albumin 3.6 g/dL (3.4-5.0); Alkaline Phosphatase 86 U/L (45-117); BUN Blood Urea Nitrogen 13 mg/dL (7-18); Bicarbonate 27 mmol/L (21-32); Bilirubin Direct < 0.1 mg/dL (0-0.2); Bilirubin Total 0.3 mg/dL (0.2-1.0); Glucose Level 87 mg/dL (74-106); Potassium 4.3 mmol/L (3.5-5.1); Protein, Total 7.5 g/dL (6.4-8.2); Sodium Level 141 mmol/L (136-145)
[2018-10-14 20:53] LABS: Barbiturates NEGATIVE (NEGATIVE); Benzodiazepines NEGATIVE (NEGATIVE); Cocaine NEGATIVE (NEGATIVE); METHAMPHETAM NEGATIVE (NEGATIVE); Methadone NEGATIVE (NEGATIVE); Opiates NEGATIVE (NEGATIVE); Phencyclidine NEGATIVE (NEGATIVE); THC Cannibis NEGATIVE (NEGATIVE)
[2018-10-14] MEDS ORDERED: NA CHLORIDE 0.9% 500 ML ONE (21:45)
[2018-10-14] MEDS ORDERED: KETOROLAC 30 MG/ML INJ ONE (21:45)
[2018-10-14] MEDS ORDERED: DEXAMETHASONE 10 MG/ML VIAL ONE (21:45)
--- NOTE | 2018-10-15 00:49 | ER ---
Nurse's Notes [facility] Name: Mckenna Ross Age: 58 yrs Sex: Female : 1960 Arrival Date: 10/14/2018 Time: 19:14 Bed 24 Private MD: Diagnosis: Acute on Chronic Headache Presentation: 10/14 19:18 Presenting complaint: Patient states: Reports headache for 2 days that radiates down aj the back of her neck. Patient reports this headache is similar to previous headaches. Patient has not seen PCP for this complaint but was seen at [facility] 2 weeks ago. Reports headache is relived with ibuprofen. Transition of care: patient was not received from another setting of care. Onset of symptoms was October 13, 2018. Care prior to arrival: None. 19:18 Method Of Arrival: Ambulatory 19:18 Acuity: RAJNI 4 aj 19:33 Risk Assessment: Do you want to hurt yourself or someone else? Patient reports no mg2 desire to harm self or others. Initial Sepsis Screen: Does the patient meet any 2 criteria? No. Patient's initial sepsis screen is negative. Does the patient have a suspected source of infection? No. Patient's initial sepsis screen is negative. Triage Assessment: 19:19 Headache History: The patient has had previous headaches and this one is similar to aj previous episodes. General: Appears in no apparent distress. uncomfortable, obese, Behavior is calm, cooperative, appropriate for age. Pain: Complains of pain in face and scalp Neuro: Level of Consciousness is awake, alert, obeys commands, Oriented to person, place, time, situation, Appropriate for age. Neuro: Reports headache in right occipital area. Respiratory: Airway is patent Respiratory effort is even, unlabored, Respiratory pattern is regular, symmetrical. Derm: Skin is intact, is healthy with good turgor, Skin is pink, warm \T\ dry. normal. 19:33 Pain: Also complains of no other associated symptoms. mg2 Historical: - Allergies: 19:19 Ativan; aj 19:19 Levaquin; aj 19:19 PENICILLINS; aj - Home Meds: 19:32 alprazolam 2 mg Oral Tb24 1 tab once daily [Active]; amitriptyline 50 mg Oral tab 1 tab mg2 once daily [Active]; furosemide 40 mg Oral tab 1 tab once daily [Active]; gabapentin 300 mg Oral cap 1 cap 3 times per day [Active]; levothyroxine 100 mcg tab 1 tab once daily [Active]; meloxicam 7.5 mg Oral tab 1 tab once daily [Active]; Potassium Chloride Oral [Active]; prednisone 10 mg Oral tab once daily [Active]; rosuvastatin 20 mg Oral tab 1 tab once daily [Active]; - PMHx: 19:32 CHF; COPD; High Cholesterol; DVT; Hypothyroidism; Hypertension; mg2 - Immunization history:: Flu vaccine status is unknown. - Social history:: Smoking status: Patient uses tobacco products, smokes one pack cigarettes per day. - Ebola Screening: : No symptoms or risks identified at this time. - Family history:: not pertinent. - Hospitalizations: : No recent hospitalization is reported. Screenin:29 Abuse screen: Denies threats or abuse. Denies injuries from another. Nutritional mg2 screening: No deficits noted. Tuberculosis screening: No symptoms or risk factors identified. Fall Risk None identified. Assessment: 19:29 General: Appears in no apparent distress. comfortable, Behavior is calm, cooperative. mg2 Pain: Complains of pain in right side of the head Pain does not radiate. Pain currently is 8 out of 10 on a pain scale. Quality of pain is described as aching, Pain began gradually, 2-3 days ago. Is intermittent. Neuro: Level of Consciousness is awake, alert, obeys commands, Oriented to person, place, time, situation. Neuro: Reports headache in right frontal area, occipital area. Cardiovascular: Capillary refill < 3 seconds Patient's skin is warm and dry. Respiratory: Airway is patent Respiratory effort is even, unlabored, Respiratory pattern is regular, symmetrical. GI: No signs and/or symptoms were reported involving the gastrointestinal system. : No signs and/or symptoms were reported regarding the genitourinary system. EENT: No signs and/or symptoms were reported regarding the EENT system. Derm: Skin is intact, is healthy with good turgor, Skin is pink, warm \T\ dry. normal. Musculoskeletal: Circulation, motion, and sensation intact. Capillary refill < 3 seconds. 23:03 Reassessment: Patient states feeling better. Patient states symptoms have improved. mg2 Vital Signs: 19:19 BP 140 / 90; Pulse 69; Resp 22; Temp 98.1; Pulse Ox 97% on R/A; Weight 127.01 kg; aj Height 5 ft. 6 in. (167.64 cm); 20:32 BP 136 / 74; Pulse 62; Resp 18; Pulse Ox 99% on R/A; Pain 5/10; mg2 21:34 Pulse 59; Resp 18; Pulse Ox 98% on R/A; Pain 7/10; mg2 22:06 BP 136 / 80; Pulse 66; Resp 18; Pulse Ox 97% on R/A; mg2 23:03 BP 113 / 68; Pulse 65; Resp 18; Temp 98; Pulse Ox 100% on R/A; Pain 3/10; mg2 19:19 Body Mass Index 45.19 (127.01 kg, 167.64 cm) aj ED Course: 19:14 Patient arrived in ED. am2 19:19 Triage completed. aj 19:19 Arm band placed on left wrist. Patient placed in an exam room. aj 19:22 Saleem Diaz, RN is Primary Nurse. mg2 19:29 No provider procedures requiring assistance completed. mg2 19:33 Patient has correct armband on for positive identification. mg2 19:41 Bradley Vo MD is Attending Physician. wa 20:13 CT completed. Patient tolerated procedure well. Patient moved back from CT. mw3 20:14 Initial lab(s) drawn, by me, sent to lab. Inserted saline lock: 20 gauge in right ls4 forearm, using aseptic technique. Blood collected. 20:34 CT Head Brain wo Cont In Process Unspecified. EDMS 22:44 Raji Sullivan MD is Referral Physician. wa 23:04 IV discontinued, intact, bleeding controlled, No redness/swelling at site. Pressure mg2 dressing applied. Administered Medications: 20:32 Drug: Zofran 4 mg Route: IVP; Site: right forearm; mg2 21:34 Follow up: Response: No adverse reaction; Nausea is decreased mg2 20:32 Drug: fentaNYL (PF) 50 mcg Route: IVP; Site: right forearm; mg2 21:15 Follow up: Response: No adverse reaction; Pain is unchanged, physician notified mg2 21:33 Drug: TORadol 30 mg Route: IVP; Site: right forearm; mg2 23:02 Follow up: Response: No adverse reaction; Marked relief of symptoms mg2 21:33 Drug: Decadron - Dexamethasone 10 mg Route: IVP; Site: right forearm; mg2 23:02 Follow up: Response: No adverse reaction; Marked relief of symptoms mg2 21:33 Drug: NS 0.9% 500 ml Route: IV; Rate: bolus; Site: right forearm; mg2 23:02 Follow up: Response: No adverse reaction; IV Status: Completed infusion; IV Intake: mg2 500ml Intake: 23:02 IV: 500ml; Total: 500ml. mg2 Outcome: 22:45 Discharge ordered by . raimundo 23:04 Discharged to home ambulatory, with family. mg2 23:04 Condition: stable 23:04 Discharge instructions given to patient, family, Instructed on discharge instructions, follow up and referral plans. medication usage, Demonstrated understanding of instructions, follow-up care, medications, Prescriptions given X 1. 23:04 Patient left the ED. mg2 Signatures: Dispatcher [employer] EDMS Bhumi Deras RN RN Bhumi Man am2 Bradley Vo MD MD wa Gardose, Michele, RN RN mg2 Mely Romano mw3 Wendy Diamond RN RN ls4 Corrections: (The following items were deleted from the chart) 19:21 19:18 Presenting complaint: Patient states: Reports headache for 2 days that radiates aj down the back of her neck. Patient reports this headache is similar to previous headaches. Patient has not seen PCP for this complaint aj
--- NOTE | 2018-10-15 00:49 | EDPHYS ---
Physician Documentation [facility] Name: Mckenna Ross Age: 58 yrs Sex: Female : 1960 Arrival Date: 10/14/2018 Time: 19:14 Bed 24 Private MD: ED Physician Bradley Vo HPI: 10/14 20:06 This 58 yrs old Female presents to ER via Ambulatory with complaints of wa Headache, High Blood Pressure. 20:06 The patient complains of pain to the R sided. The patient describes the headache as wa throbbing. Onset: The symptoms/episode began/occurred yesterday, gradual onset. actually less severe than the episode 2 weeks. h/o FAGAN's . Associated signs and symptoms: Pertinent positives: dizziness, nausea, Pertinent negatives: altered mental status, vision loss, vomiting, weakness. Severity of symptoms: At its worst the pain was severe, in the emergency department the pain is unchanged. Headache History: The patient has had previous headaches and this one is less severe than previous episodes. The symptoms are alleviated by nothing. the symptoms are aggravated by nothing. The patient has experienced similar episodes in the past, multiple times. The patient has not recently seen a physician. states FAGAN R side. has been taking her BP serially at home while having the HAs and noted high. admits to nausea but not vomiting. some light sensitivity but denies neck stiffness or fever. Historical: - Allergies: 19:19 Ativan; aj 19:19 Levaquin; aj 19:19 PENICILLINS; aj - Home Meds: 19:32 alprazolam 2 mg Oral Tb24 1 tab once daily [Active]; amitriptyline 50 mg Oral tab 1 tab mg2 once daily [Active]; furosemide 40 mg Oral tab 1 tab once daily [Active]; gabapentin 300 mg Oral cap 1 cap 3 times per day [Active]; levothyroxine 100 mcg tab 1 tab once daily [Active]; meloxicam 7.5 mg Oral tab 1 tab once daily [Active]; Potassium Chloride Oral [Active]; prednisone 10 mg Oral tab once daily [Active]; rosuvastatin 20 mg Oral tab 1 tab once daily [Active]; - PMHx: 19:32 CHF; COPD; High Cholesterol; DVT; Hypothyroidism; Hypertension; mg2 - Immunization history:: Flu vaccine status is unknown. - Social history:: Smoking status: Patient uses tobacco products, smokes one pack cigarettes per day. - Ebola Screening: : No symptoms or risks identified at this time. - Family history:: not pertinent. - Hospitalizations: : No recent hospitalization is reported. ROS: 20:11 Constitutional: Negative for fever, chills, and weight loss, Eyes: Negative for injury, wa pain, redness, and discharge, ENT: Negative for injury, pain, and discharge, Neck: Negative for injury, pain, and swelling, Cardiovascular: Negative for chest pain, palpitations, and edema, Respiratory: Negative for shortness of breath, cough, wheezing, and pleuritic chest pain, Abdomen/GI: Negative for abdominal pain, nausea, vomiting, diarrhea, and constipation, Back: Negative for injury and pain, : Negative for injury, bleeding, discharge, and swelling, MS/Extremity: Negative for injury and deformity, Skin: Negative for injury, rash, and discoloration, Psych: Negative for depression, anxiety, suicide ideation, homicidal ideation, and hallucinations. 20:11 Neuro: Positive for dizziness, headache, Negative for syncope, tingling, weakness. 20:11 All other systems are negative. Exam: 20:12 Head/Face: Normocephalic, atraumatic. Eyes: Pupils equal round and reactive to light, wa extra-ocular motions intact. Lids and lashes normal. Conjunctiva and sclera are non-icteric and not injected. Cornea within normal limits. Periorbital areas with no swelling, redness, or edema. ENT: Nares patent. No nasal discharge, no septal abnormalities noted. Tympanic membranes are normal and external auditory canals are clear. Oropharynx with no redness, swelling, or masses, exudates, or evidence of obstruction, uvula midline. Mucous membranes moist. Neck: Trachea midline, no thyromegaly or masses palpated, and no cervical lymphadenopathy. Supple, full range of motion without nuchal rigidity, or vertebral point tenderness. No Meningismus. Chest/axilla: Normal chest wall appearance and motion. Nontender with no deformity. No lesions are appreciated. Cardiovascular: Regular rate and rhythm with a normal S1 and S2. No gallops, murmurs, or rubs. Normal PMI, no JVD. No pulse deficits. Respiratory: Lungs have equal breath sounds bilaterally, clear to auscultation and percussion. No rales, rhonchi or wheezes noted. No increased work of breathing, no retractions or nasal flaring. Abdomen/GI: Soft, non-tender, with normal bowel sounds. No distension or tympany. No guarding or rebound. No evidence of tenderness throughout. Back: No spinal tenderness. No costovertebral tenderness. Full range of motion. Skin: Warm, dry with normal turgor. Normal color with no rashes, no lesions, and no evidence of cellulitis. MS/ Extremity: Pulses equal, no cyanosis. Neurovascular intact. Full, normal range of motion. Psych: Awake, alert, with orientation to person, place and time. Behavior, mood, and affect are within normal limits. 20:12 Constitutional: The patient appears alert, obese. mild distress from pain 20:12 Neuro: Orientation: is normal, Mentation: is normal, Memory: is normal, Cranial nerves: CN II- XII are normal as tested, Cerebellar function: is grossly normal, Motor: is normal, Gait: is steady. Vital Signs: 19:19 BP 140 / 90; Pulse 69; Resp 22; Temp 98.1; Pulse Ox 97% on R/A; Weight 127.01 kg; aj Height 5 ft. 6 in. (167.64 cm); 20:32 BP 136 / 74; Pulse 62; Resp 18; Pulse Ox 99% on R/A; Pain 5/10; mg2 21:34 Pulse 59; Resp 18; Pulse Ox 98% on R/A; Pain 7/10; mg2 22:06 BP 136 / 80; Pulse 66; Resp 18; Pulse Ox 97% on R/A; mg2 23:03 BP 113 / 68; Pulse 65; Resp 18; Temp 98; Pulse Ox 100% on R/A; Pain 3/10; mg2 19:19 Body Mass Index 45.19 (127.01 kg, 167.64 cm) aj MDM: 19:42 Patient medically screened. wa 20:13 Differential diagnosis: FAGAN. h/o HAs. pt on ASA. will check head CT. will manage pain wa and reassess. 22:43 Data reviewed: vital signs, nurses notes, lab test result(s), radiologic studies. Test wa interpretation: by ED physician or midlevel provider: labs noted wnl. Head CT negative. Response to treatment: the patient's symptoms have markedly improved after treatment. ED course: received meds for FAGAN. improved. negative work up. h/o HAs. no LP warranted per presentation. will have f/u with neurology. 10/14 19:53 Order name: UDS dc 10/14 19:53 Order name: Basic Metabolic Panel dc 10/14 19:53 Order name: CBC with Diff; Complete Time: 20:44 dc 10/14 19:53 Order name: Hepatic Function; Complete Time: 20:44 dc 10/14 19:53 Order name: Protime (+inr); Complete Time: 20:45 dc 10/14 19:53 Order name: Urine Drug Screen; Complete Time: 20:58 EDMS 10/14 19:53 Order name: CT Head Brain wo Cont dc 10/14 19:54 Order name: Basic Metabolic Panel; Complete Time: 20:44 EDVA 10/14 20:36 Order name: Urine Dipstick--Ancillary (enter results) cm6 10/14 19:53 Order name: Cardiac monitoring; Complete Time: 20:18 dc 10/14 19:53 Order name: IV Saline Lock; Complete Time: 20:18 dc 10/14 19:53 Order name: Labs collected and sent; Complete Time: 20:18 dc 10/14 19:53 Order name: NPO; Complete Time: 20:18 dc 10/14 19:53 Order name: Urine Dipstick-Ancillary (obtain specimen); Complete Time: 20:32 dc Administered Medications: 20:32 Drug: Zofran 4 mg Route: IVP; Site: right forearm; mg2 21:34 Follow up: Response: No adverse reaction; Nausea is decreased mg2 20:32 Drug: fentaNYL (PF) 50 mcg Route: IVP; Site: right forearm; mg2 21:15 Follow up: Response: No adverse reaction; Pain is unchanged, physician notified mg2 21:33 Drug: TORadol 30 mg Route: IVP; Site: right forearm; mg2 23:02 Follow up: Response: No adverse reaction; Marked relief of symptoms mg2 21:33 Drug: Decadron - Dexamethasone 10 mg Route: IVP; Site: right forearm; mg2 23:02 Follow up: Response: No adverse reaction; Marked relief of symptoms mg2 21:33 Drug: NS 0.9% 500 ml Route: IV; Rate: bolus; Site: right forearm; mg2 23:02 Follow up: Response: No adverse reaction; IV Status: Completed infusion; IV Intake: mg2 500ml Disposition: 10/14/18 22:45 Discharged to Home. Impression: Acute on Chronic Headache. - Condition is Stable. - Discharge Instructions: General Headache Without Cause. - Prescriptions for Fioricet 50- 325-40 mg Oral tablet - take 1 tablet by ORAL route every 6 hours as needed not to exceed 6 tablets per 24hrs; 20 tablet. - Medication Reconciliation Form, Thank You Letter, Antibiotic Education, Prescription Opioid Use form. - Follow up: Raji Sulilvan MD; When: 1 - 2 days; Reason: Recheck today's complaints. - Problem is new. - Symptoms have improved. - Notes: take medication as prescribed. see the neurologist by calling to maureen to be seen withint he next 48 hours for further evaluation Signatures: Dispatcher [employer] EDBhumi Okeefe RN RN Bradlye Nash MD MD wa Gardose, Michele, RN RN mg2 Corrections: (The following items were deleted from the chart) 23:04 22:45 10/14/2018 22:45 Discharged to Home. Impression: Acute on Chronic Headache. mg2 Condition is Stable. Forms are Medication Reconciliation Form, Thank You Letter, Antibiotic Education, Prescription Opioid Use. Follow up: Raji Sullivan; When: 1 - 2 days; Reason: Recheck today's complaints. Problem is new. Symptoms have improved. [email or web address]
[2018-10-15 01:04] LABS: Urine Blood NEGATIVE (NEG); Urine Glucose NEGATIVE (NEG); Urine Protein NEGATIVE (NEG); Urine Specific Gravity <1.005 (1.005-1.030)
[2018-10-15 02:40] VITALS: BP 113/68; TEMP 98; O2SAT 100
--- NOTE | 2018-10-15 11:24 | RAD REPORT ---
EXAM DESCRIPTION: CT - Head Brain Wo Cont - 10/14/2018 8:54 pm CLINICAL HISTORY: Headache. COMPARISON: None. TECHNIQUE: CT scan of the brain without IV contrast. This exam was performed according to our depa rtmental dose-optimization program, which includes automated exposure control, adjustment of the mA a nd/or kV according to patient size and/or use of iterative reconstruction technique. FINDINGS: The ventricles, cisterns, and sulci are age-appropriate. No evidence of acute infarction, intracranial hemorrhage, extra-axial fluid collection, or midline shift. No air-fluid levels are seen in the paranasal sinuses to suggest acute sinusitis. No depressed skull fracture. IMPRESSION: No acute intracranial findings. Electronically signed by: Sekou Arthur MD 10/14/2018 8:50 PM CDT Due to temporary technical issues with the PACS/Fluency reporting system, reports are being signed by the in house radiologist as a courtesy to ensure prompt reporting. The interpreting radiologist is f ully responsible for the content of the report.
== END 2018-10-14 23:04 | disposition home or self-care (01) ==
LOC: ER 19:13
DX: R51 Headache (principal); I10 Essential (primary) hypertension; F17.210 Nicotine dependence, cigarettes, uncomplicated; E03.9 Hypothyroidism, unspecified; E78.00 Pure hypercholesterolemia, unspecified; I50.9 Heart failure, unspecified; J44.9 Chronic obstructive pulmonary disease, unspecified; Z88.0 Allergy status to penicillin; Z88.1 Allergy status to other antibiotic agents; Z88.8 Allergy status to other drugs, medicaments and biological substances; Z86.718 Personal history of other venous thrombosis and embolism
CPT/HCPCS: 36415; 70450; 80048; 80076; 80307; 81003; 85025; 85610; 96361; 96374; 96375; 99284; J1100; J2405; J3010

== ENCOUNTER 2019-01-27 15:45 | Emergency (ER) | payer OTHER ==
[2019-01-27 16:54] LABS: Absolute Lymphocytes (CBC) 1.9 K/uL (0.7-4.9); Basophils % 1.1 % (0-1.3); Hematocrit 45.8 % (36.0-45.0); Lymphocytes % 19.2 % (15.3-44.8); MPV 7.4 fL (7.6-11.3); RBC Red Blood Cell Count 4.83 M/uL (3.86-4.86)
[2019-01-27 17:02] LABS: Protime INR 1.02
[2019-01-27 17:13] LABS: ALT/SGPT 27 U/L (12-78); AST/SGOT 34 U/L (15-37); Albumin 3.9 g/dL (3.4-5.0); Alkaline Phosphatase 110 U/L (45-117); BUN Blood Urea Nitrogen 11 mg/dL (7-18); Bicarbonate 24 mmol/L (21-32); Bilirubin Direct 0.3 mg/dL (0-0.2); Bilirubin Total 0.9 mg/dL (0.2-1.0); Glucose Level 102 mg/dL (74-106); Potassium 3.4 mmol/L (3.5-5.1); Sodium Level 136 mmol/L (136-145)
--- NOTE | 2019-01-27 17:26 | RAD REPORT ---
EXAM DESCRIPTION: CT - Head Brain Wo Cont - 01/27/2019 5:14 pm CLINICAL HISTORY: Transient alteration of awareness COMPARISON: September CT study TECHNIQUE: Axial 5 mm thick images of the head were obtained without IV contrast. All CT scans are performed using dose optimization technique as appropriate and may include automated exposure control or mA/KV adjustment according to patient size. FINDINGS: No intracranial hemorrhage, mass, edema or shift of mid-line structures. No acute infarcti on changes seen. No abnormal extra-axial fluid collections. Ventricles are normal. Mastoid air cells and visualized portions of the paranasal sinuses are clear. No acute bony findings. IMPRESSION: Negative non-contrast CT head examination.
[2019-01-27] MEDS ORDERED: NICOTINE 21 MG/PAT TD ONE (19:35)
[2019-01-27] MEDS ORDERED: ALBUTEROL 2.5 MG/3 ML NEB SOL ONE (21:25)
[2019-01-27] MEDS ORDERED: IPRATROPIUM BROM 0.5MG/2.5ML ONE (21:25)
[2019-01-27] MEDS ORDERED: HALOPERIDOL LACT 5 MG/ML INJ ONE (23:53)
[2019-01-27] MEDS ORDERED: LORazepam 2 MG/ML VIAL ONE (23:53)
[2019-01-27] MEDS ORDERED: DIPHENHYDRAMINE 50 MG/ML VIAL ONE (23:53)
--- NOTE | 2019-01-28 02:31 | ER ---
Nurse's Notes [facility] Name: Mckenna Ross Age: 58 yrs Sex: Female : 1960 Arrival Date: 01/27/2019 Time: 15:47 Bed 15 Private MD: Diagnosis: Hallucinations, unspecified;Paranoia Presentation: 01/27 16:00 Presenting complaint: Patient states: "The people out there are trying to kill me and I aj1 can't take this." When asked who she states "EMS people and another race, not my race" Denies suicidal or homicidal ideation. States "I'm just scared. Im trying to stay alive!!". Transition of care: patient was not received from another setting of care. Onset of symptoms was January 27, 2019. Risk Assessment: Do you want to hurt yourself or someone else? Patient reports no desire to harm self or others. Initial Sepsis Screen: Does the patient meet any 2 criteria? No. Patient's initial sepsis screen is negative. Does the patient have a suspected source of infection? No. Patient's initial sepsis screen is negative. Care prior to arrival: None. 16:00 Method Of Arrival: Ambulatory aj1 16:00 Acuity: RAJNI 3 aj1 Triage Assessment: 16:04 General: Appears in no apparent distress. comfortable, Behavior is cooperative, aj1 agitated, restless. Pain: Complains of pain in right foot and left foot Pain currently is 7 out of 10 on a pain scale. Neuro: Level of Consciousness is awake, alert, obeys commands. Cardiovascular: Patient's skin is warm and dry. Respiratory: Airway is patent Respiratory effort is even, unlabored, Respiratory pattern is regular, symmetrical. Historical: - Allergies: 16:04 Levaquin; aj1 16:04 PENICILLINS; aj1 - Home Meds: 16:04 alprazolam 2 mg Oral Tb24 1 tab once daily [Active]; amitriptyline 50 mg Oral tab 1 tab aj1 once daily [Active]; furosemide 40 mg Oral tab 1 tab once daily [Active]; gabapentin 300 mg Oral cap 1 cap 3 times per day [Active]; levothyroxine 100 mcg tab 1 tab once daily [Active]; meloxicam 7.5 mg Oral tab 1 tab once daily [Active]; Potassium Chloride Oral [Active]; prednisone 10 mg Oral tab once daily [Active]; rosuvastatin 20 mg Oral tab 1 tab once daily [Active]; - PMHx: 16:04 CHF; COPD; DVT; High Cholesterol; Hypertension; Hypothyroidism; aj1 - Immunization history:: Flu vaccine is not up to date. - Social history:: Smoking status: Patient uses tobacco products, unknown amount. - Ebola Screening: : Patient denies travel to an Ebola-affected area in the 21 days before illness onset. Screenin:10 Abuse screen: Denies threats or abuse. Nutritional screening: No deficits noted. rb1 Tuberculosis screening: No symptoms or risk factors identified. Fall Risk None identified. Assessment: 16:10 General: Appears distressed, Behavior is anxious, Denies fever, feeling ill. General: rb1 Pt. has been out of her medications for about a month. Pain: Complains of pain in left foot and left shoulder, headache Pain currently is 7 out of 10 on a pain scale. Pain began 1 day ago. Neuro: Level of Consciousness is awake, alert, Oriented to person, place, Reports pt. reports that people are trying to kill her, denies wanting to hurt herself or others, just wants to stay safe because people are looking for her.. Cardiovascular: Capillary refill < 3 seconds is brisk in bilateral fingers. Respiratory: Airway is patent Respiratory effort is even, unlabored, Respiratory pattern is regular, symmetrical. GI: No signs and/or symptoms were reported involving the gastrointestinal system. : No signs and/or symptoms were reported regarding the genitourinary system. Derm: Skin is pink, warm \\T\\ dry. Musculoskeletal: Range of motion: intact in all extremities. 17:00 Reassessment: Patient appears in no apparent distress at this time. No changes from rb1 previously documented assessment. 17:33 Reassessment: Pt. is asking to go smoke, educated on smoke free facility. Provider rb1 notified. No new orders received at this time. 18:00 Reassessment: Patient appears in no apparent distress at this time. Patient and/or rb1 family updated on plan of care and expected duration. Pain level reassessed. Patient is alert, oriented x 3, equal unlabored respirations, skin warm/dry/pink. Pt. wants to go smoke; educated that we are a smoke free facility. 18:11 Reassessment: Pt. requested to go smoke; reeducated on smoking policy. rb1 18:45 Reassessment: Pt. took her belongings and went outside to smoke. Provider notified. rb1 19:00 Reassessment: Patient appears in no apparent distress at this time. Patient and/or jb4 family updated on plan of care and expected duration. Pain level reassessed. Patient is alert, oriented x 3, equal unlabored respirations, skin warm/dry/pink. 20:00 Reassessment: Patient appears in no apparent distress at this time. Patient and/or jb4 family updated on plan of care and expected duration. Pain level reassessed. Patient is alert, oriented x 3, equal unlabored respirations, skin warm/dry/pink. 21:00 Reassessment: Patient appears in no apparent distress at this time. Patient and/or jb4 family updated on plan of care and expected duration. Pain level reassessed. Patient is alert, oriented x 3, equal unlabored respirations, skin warm/dry/pink. PT reports wanting a breathing treatment, provider notified see [facility] for orders. 21:00 Respiratory: Airway is patent Respiratory effort is even, unlabored, Respiratory jb4 pattern is regular, symmetrical, Breath sounds are diminished bilaterally. 21:30 Respiratory: Airway is patent Respiratory effort is even, unlabored, Respiratory jb4 pattern is regular, symmetrical, Breath sounds with wheezes bilaterally. 21:30 Reassessment: Patient appears in no apparent distress at this time. Patient and/or jb4 family updated on plan of care and expected duration. Pain level reassessed. Patient is alert, oriented x 3, equal unlabored respirations, skin warm/dry/pink. Patient states feeling better. 21:52 Reassessment: Patient appears in no apparent distress at this time. Patient and/or jb4 family updated on plan of care and expected duration. Pain level reassessed. Patient is alert, oriented x 3, equal unlabored respirations, skin warm/dry/pink. Patient states feeling better. 22:43 Reassessment: Patient appears in no apparent distress at this time. Patient and/or jb4 family updated on plan of care and expected duration. Pain level reassessed. Patient is alert, oriented x 3, equal unlabored respirations, skin warm/dry/pink. Attempted to Collect urine sample at this time. Pt refused, explained what the sample was for and that [facility] may refuse to talk to the patient and that we may not be able to get her the help she needs without having all the test results available for them. Pt responded stating "That is bullshit. Why should I cooperate when no one wants to cooperate with me.". 23:45 Reassessment: Patient appears in no apparent distress at this time. Patient and/or jb4 family updated on plan of care and expected duration. Pain level reassessed. Patient is alert, oriented x 3, equal unlabored respirations, skin warm/dry/pink. PT is more agitated, reports hearing ER provider talking to other people in the ER about her medical condition and patients plotting to harm her. PT states " you are all in there pockets, you're all trying to kill me. They have people on every corner. I just know I will in here and you are all in on it.". 01/28 01:00 Reassessment: Patient appears in no apparent distress at this time. Patient and/or jb4 family updated on plan of care and expected duration. Pain level reassessed. Patient is alert, oriented x 3, equal unlabored respirations, skin warm/dry/pink. PT is becoming more anxious and agitated. Is reporting hearing nursing staff talking about wanting to kill her. 01:52 Reassessment: Patient appears in no apparent distress at this time. Patient and/or jb4 family updated on plan of care and expected duration. Pain level reassessed. Patient is alert, oriented x 3, equal unlabored respirations, skin warm/dry/pink. PT is sitting in bed eating. Appears more calm after injections. 02:15 Reassessment: Reassessment: Pt continues to report seeing other people wanting kill or jb4 harm her in the rooms across from her. all rooms are empty. Pt keeps questioning who is there and reports hearing voices of people plotting to kill her or harm her. Pt reports that the nursing staff if working with the people trying to kill her. Pt states " the medications you gave me were poisons! You said I had a few hours but you are trying to speed this up so they can kill me!" Pt is still anxious and behaving irrationally. 03:25 Reassessment: Patient appears in no apparent distress at this time. Patient and/or jb4 family updated on plan of care and expected duration. Pain level reassessed. PT is resting in bed with eyes closed, respirations are even and unlabored, no s/s of distress noted at this time. Nurse to Nurse report done with Josue RN from [facility], and Jazz LAO from [facility]. 04:30 Reassessment: Patient appears in no apparent distress at this time. No changes from jb4 previously documented assessment. Patient and/or family updated on plan of care and expected duration. Pain level reassessed. 05:34 Reassessment: Patient appears in no apparent distress at this time. Patient and/or jb4 family updated on plan of care and expected duration. Pain level reassessed. PT is resting in bed with eyes closed, no s/s of distress or pain noted. 07:03 Reassessment: Patient appears in no apparent distress at this time. Patient and/or jb4 family updated on plan of care and expected duration. Pain level reassessed. Patient is alert, oriented x 3, equal unlabored respirations, skin warm/dry/pink. PT transferred to receiving facility via EMS. Psych: 01/27 16:10 Subjective: Patient's mood is anxious Delusions are pt. reports people are trying to rb1 kill her. Hallucinations are auditory, Having thoughts of denies suicidal or homicidal ideations. Objective: Patient is cooperative, Speech is rambling, Affect is inappropriate. Suicide Risk Assessment: Sad Person Scale: Sex of patient: Female: Score 0 points. Age of patient: Score 0 point if patient falls outside of specified age parameters. Depression: Score 1 point if signs of depression are present. Previous Attempt: Score 0 point if patient has not previously attempted suicide. Substance Abuse: Score 0 point if patient does not abuse alcohol or drugs. Rational Thinking: Score 1 point if patient is lacking rational thinking. Social Support: Score 1 point if social support is lacking and/or unavailable. Organized Plan: Score 0 if patient did not have an organized plan in place. Chronic Sickness: Score 1 point if patient has illness, chronic, debilitating, or severe. TOTAL POINTS: If total points are 3-4, proposed clinical action is close follow-up/consider hospitalization. Pt denies substance abuse. Vital Signs: 16:04 BP 150 / 80; Pulse 92; Resp 18; Temp 98.0; Pulse Ox 95% on R/A; Weight 124.74 kg (R); aj1 Pain 7/10; 17:26 BP 138 / 83; Pulse 90; Resp 20; jd2 18:20 BP 122 / 76; Pulse 77; Resp 19; Pulse Ox 96% on R/A; Pain 6/10; rb1 21:21 BP 146 / 77; Pulse 79; Resp 20; Pulse Ox 95% on R/A; jb4 23:00 BP 138 / 84; Pulse 68; Resp 16; Pulse Ox 95% on R/A; jb4 01/28 02:00 BP 151 / 79; Pulse 78; Resp 18; Pulse Ox 96% on R/A; jb4 03:15 BP 99 / 54; Pulse 66; Resp 18; Pulse Ox 91% on R/A; jb4 04:30 BP 133 / 80; Pulse 69; Resp 16; Pulse Ox 90% on R/A; jb4 05:30 BP 112 / 66; Pulse 61; Resp 18; Pulse Ox 92% on R/A; jb4 06:30 BP 118 / 72; Pulse 64; Resp 18; Pulse Ox 91% on R/A; jb4 ED Course: 01/27 15:47 Patient arrived in ED. as 16:03 Triage completed. aj1 16:04 Arm band placed on Patient placed in an exam room. aj1 16:08 Juan Carlos Kern PA is PHCP. cp 16:08 Ethan Morales MD is Attending Physician. cp 16:10 Patient has correct armband on for positive identification. Bed in low position. Call rb1 light in reach. Side rails up X 1. Pulse ox on. NIBP on. 16:49 Missed attempt(s): 20 gauge in right forearm. antecubital area. Bleeding controlled, jd2 band aid applied, catheter tip intact. 16:54 Ketty Ramirez, RN is Primary Nurse. rb1 17:14 CT Head Brain wo Cont In Process Unspecified. EDMS 19:00 Report given to TASHIA Alexander. rb1 01/28 06:59 Primary Nurse role handed off by Ketty Ramirez, TASHIA bd 07:04 No provider procedures requiring assistance completed. Patient did not have IV access jb4 during this emergency room visit. Administered Medications: 01/27 19:41 Drug: Nicoderm CQ 21 mg/24 hr 21 mg {Note: Applied to Left Shoulder..} Route: jb4 Transdermal; Site: affected area; 21:00 Drug: Albuterol 2.5 mg Route: Inhalation; jb4 21:30 Follow up: Response: No adverse reaction; Marked relief of symptoms jb4 21:00 Drug: AtroVENT Aerosol 0.5 mg Route: Inhalation; jb4 21:30 Follow up: Response: No adverse reaction; Marked relief of symptoms jb4 01/28 01:50 Drug: Ativan 1 mg Route: IM; Site: right deltoid; jb4 02:30 Follow up: Response: No adverse reaction; Marked relief of symptoms jb4 01:50 Drug: Benadryl 25 mg Route: IM; Site: left deltoid; jb4 02:30 Follow up: Response: No adverse reaction; Marked relief of symptoms jb4 01:50 Drug: HALdol (as decanoate) 10 mg Route: IM; Site: left vastus lateralis; jb4 02:30 Follow up: Response: No adverse reaction; Marked relief of symptoms jb4 07:02 Drug: Potassium Effervescent Tablet 25 mEq Route: PO; jb4 07:02 Follow up: Response: Medication administered at discharge. jb4 Outcome: 02:30 ER care complete, transfer ordered by MD. felix 07:04 Transferred by ground EMS Transfer form completed. jb4 07:04 Condition: stable 07:04 Discharge instructions given to patient, Instructed on the need for transfer, Demonstrated understanding of instructions. 07:05 Patient left the ED. jb4 Signatures: Dispatcher [employer] EDMS Silvia Genao Angela, RN RN ajSidra Ramírez as Juan Carlos Kern PA PA cp Barber, Rebecca, RN RN rb1 Donley, Jonika jd2 Bryson, James, RN RN jb4 Corrections: (The following items were deleted from the chart) 01/27 21:53 21:00 Reassessment: Patient appears in no apparent distress at this time. Patient jb4 and/or family updated on plan of care and expected duration. Pain level reassessed. Patient is alert, oriented x 3, equal unlabored respirations, skin warm/dry/pink. jb4 21:53 21:52 Reassessment: Patient appears in no apparent distress at this time. Patient jb4 and/or family updated on plan of care and expected duration. Pain level reassessed. Patient is alert, oriented x 3, equal unlabored respirations, skin warm/dry/pink. jb4 21:56 21:52 Respiratory: Airway is patent Respiratory effort is even, unlabored, Respiratory jb4 pattern is regular, symmetrical, Breath sounds with wheezes bilaterally. jb4 01/28 02:29 02:19 Reassessment: 4 jb4
--- NOTE | 2019-01-28 02:32 | EDPHYS ---
Physician Documentation [facility] Name: Mckenna Ross Age: 58 yrs Sex: Female : 1960 Arrival Date: 01/27/2019 Time: 15:47 Bed 15 Private MD: ED Physician Ethan Morales HPI: 01/27 16:23 This 58 yrs old Female presents to ER via Ambulatory with complaints of cp auditory and visual hallucinations. 16:23 The patient presents to the emergency department with paranoia. Onset: The cp symptoms/episode began/occurred at an unknown time. Associated signs and symptoms: Pertinent positives; hallucinations, headache, Pertinent negatives: homicidal ideation, substance abuse, suicide ideation. Severity of symptoms: in the emergency department the symptoms are unchanged. Historical: - Allergies: 16:04 Levaquin; aj1 16:04 PENICILLINS; aj1 - Home Meds: 16:04 alprazolam 2 mg Oral Tb24 1 tab once daily [Active]; amitriptyline 50 mg Oral tab 1 tab aj1 once daily [Active]; furosemide 40 mg Oral tab 1 tab once daily [Active]; gabapentin 300 mg Oral cap 1 cap 3 times per day [Active]; levothyroxine 100 mcg tab 1 tab once daily [Active]; meloxicam 7.5 mg Oral tab 1 tab once daily [Active]; Potassium Chloride Oral [Active]; prednisone 10 mg Oral tab once daily [Active]; rosuvastatin 20 mg Oral tab 1 tab once daily [Active]; - PMHx: 16:04 CHF; COPD; DVT; High Cholesterol; Hypertension; Hypothyroidism; aj1 - Immunization history:: Flu vaccine is not up to date. - Social history:: Smoking status: Patient uses tobacco products, unknown amount. - Ebola Screening: : Patient denies travel to an Ebola-affected area in the 21 days before illness onset. ROS: 16:30 Constitutional: Negative for body aches, chills, fever, poor PO intake. cp 16:30 Eyes: Negative for injury, pain, redness, and discharge. cp 16:30 ENT: Negative for drainage from ear(s), ear pain, sore throat, difficulty swallowing, difficulty handling secretions. 16:30 Neck: Negative for pain with movement, pain at rest, stiffness. 16:30 Cardiovascular: Negative for chest pain. 16:30 Respiratory: Negative for cough, shortness of breath, wheezing. 16:30 Abdomen/GI: Negative for abdominal pain, nausea, vomiting, and diarrhea. 16:30 Skin: Negative for rash. 16:30 Neuro: Positive for headache, Negative for altered mental status, weakness. 16:30 Psych: Positive for auditory hallucinations, visual hallucinations, Negative for homicidal ideation, suicide gesture, suicidal ideation. 16:30 All other systems are negative. Exam: 16:35 Constitutional: The patient appears in no acute distress, alert, awake, cp non-diaphoretic, non-toxic, well developed, well nourished. 16:35 Head/Face: Normocephalic, atraumatic. cp 16:35 Eyes: Periorbital structures: appear normal, Pupils: equal, round, and reactive to light and accomodation, Extraocular movements: intact throughout, Conjunctiva: normal, no exudate, no injection, Lids and lashes: appear normal, bilaterally. 16:35 ENT: External ear(s): are unremarkable, Nose: is normal, Mouth: is normal, Posterior pharynx: is normal, airway is patent. 16:35 Neck: ROM/movement: is normal, is supple, without pain, no range of motions limitations, no meningismus, no nuchal rigidity. 16:35 Chest/axilla: Inspection: normal, Palpation: is normal, no crepitus, no tenderness. 16:35 Cardiovascular: Rate: normal, Rhythm: regular. 16:35 Respiratory: the patient does not display signs of respiratory distress, Respirations: normal, no use of accessory muscles, no retractions, no splinting, no tachypnea, labored breathing, is not present, Breath sounds: are clear throughout, no decreased breath sounds, no stridor, no wheezing. 16:35 Abdomen/GI: Inspection: abdomen appears normal. 16:35 Skin: no rash present. 16:35 Neuro: Orientation: to person, place \T\ time. Mentation: is normal, Motor: moves all fours. 16:35 Psych: Behavior/mood is pleasant, cooperative, Affect is calm, Patient has no thoughts/intents to harm self or others. Judgement / Insight is normal. Delusions/hallucinations are present and described as described as voices saying they are going to kill her and that she is seeing multiple persons described as [place] and black who want to kill her. She is forced to hide in her home from these persons in order to avoid being killed. 23:00 ECG was reviewed by the Attending Physician. cp Vital Signs: 16:04 BP 150 / 80; Pulse 92; Resp 18; Temp 98.0; Pulse Ox 95% on R/A; Weight 124.74 kg (R); aj1 Pain 7/10; 17:26 BP 138 / 83; Pulse 90; Resp 20; jd2 18:20 BP 122 / 76; Pulse 77; Resp 19; Pulse Ox 96% on R/A; Pain 6/10; rb1 21:21 BP 146 / 77; Pulse 79; Resp 20; Pulse Ox 95% on R/A; jb4 23:00 BP 138 / 84; Pulse 68; Resp 16; Pulse Ox 95% on R/A; jb4 01/28 02:00 BP 151 / 79; Pulse 78; Resp 18; Pulse Ox 96% on R/A; jb4 03:15 BP 99 / 54; Pulse 66; Resp 18; Pulse Ox 91% on R/A; jb4 04:30 BP 133 / 80; Pulse 69; Resp 16; Pulse Ox 90% on R/A; jb4 05:30 BP 112 / 66; Pulse 61; Resp 18; Pulse Ox 92% on R/A; jb4 06:30 BP 118 / 72; Pulse 64; Resp 18; Pulse Ox 91% on R/A; jb4 MDM: 01/27 16:11 Patient medically screened. 17:45 Data reviewed: vital signs, nurses notes, lab test result(s), radiologic studies, CT cp scan, and as a result, I will have patient evaluated by [facility]. 17:45 Test interpretation: by ED physician or midlevel provider: ECG. cp 01/27 16:25 Order name: Acetaminophen; Complete Time: 17:39 cp 01/27 17:39 Interpretation: Reviewed. cp 01/27 16:25 Order name: Basic Metabolic Panel; Complete Time: 17:39 cp 01/27 17:39 Interpretation: Normal except: K 3.4; GFR 48. cp 01/27 16:25 Order name: CBC with Diff; Complete Time: 17:39 cp 01/27 17:39 Interpretation: Normal except: HGB 16.0; HCT 45.8; MPV 7.4. cp 01/27 16:25 Order name: ETOH Level; Complete Time: 17:39 cp 01/27 17:40 Interpretation: ETOH 3; Reviewed. 01/27 16:25 Order name: Hepatic Function; Complete Time: 17:39 cp 01/27 17:39 Interpretation: Normal except: BILID 0.3; GLOB 4.1; A/G 1.0. cp 01/27 16:25 Order name: PT-INR; Complete Time: 17:39 cp 01/27 16:25 Order name: Ptt, Activated; Complete Time: 17:39 cp 01/27 16:25 Order name: Salicylate; Complete Time: 17:39 cp 01/27 16:25 Order name: Urine Drug Screen; Complete Time: 14:52 cp 01/27 16:25 Order name: Urine Microscopic Only; Complete Time: 14:52 cp 01/27 16:25 Order name: CT Head Brain wo Cont; Complete Time: 17:39 cp 01/27 17:40 Interpretation: Report reviewed. 01/27 16:25 Order name: EKG; Complete Time: 16:26 cp 01/27 16:25 Order name: EKG - Nurse/Tech; Complete Time: 22:25 01/27 16:25 Order name: Labs collected and sent; Complete Time: 18:38 cp EC:00 Rate is 59 beats/min. Rhythm is regular. TN interval is normal. QRS interval is normal. cp QT interval is normal. Interpreted by me. Reviewed by me. Administered Medications: 19:41 Drug: Nicoderm CQ 21 mg/24 hr 21 mg {Note: Applied to Left Shoulder..} Route: jb4 Transdermal; Site: affected area; 21:00 Drug: Albuterol 2.5 mg Route: Inhalation; jb4 21:30 Follow up: Response: No adverse reaction; Marked relief of symptoms 4 21:00 Drug: AtroVENT Aerosol 0.5 mg Route: Inhalation; jb4 21:30 Follow up: Response: No adverse reaction; Marked relief of symptoms 4 01/28 01:50 Drug: Ativan 1 mg Route: IM; Site: right deltoid; jb4 02:30 Follow up: Response: No adverse reaction; Marked relief of symptoms jb4 01:50 Drug: Benadryl 25 mg Route: IM; Site: left deltoid; jb4 02:30 Follow up: Response: No adverse reaction; Marked relief of symptoms jb4 01:50 Drug: HALdol (as decanoate) 10 mg Route: IM; Site: left vastus lateralis; jb4 02:30 Follow up: Response: No adverse reaction; Marked relief of symptoms jb4 07:02 Drug: Potassium Effervescent Tablet 25 mEq Route: PO; jb4 07:02 Follow up: Response: Medication administered at discharge. jb4 Disposition: 01/28/19 02:30 Transfer ordered to Psych Facility. Diagnosis are Hallucinations, unspecified, Paranoia. - Reason for transfer: Higher level of care. - Accepting physician is psych facility. - Condition is Stable. - Problem is new. - Symptoms are unchanged. Addendum: 01/31/2019 20:26 Co-signature as Attending Physician, Ethan Morales MD. r n Signatures: Dispatcher [employer] EDMS Angela Palacios RN RN aj1 Ethan Morales MD MD rn Page, Corey, PA PA cp Bryson, James, RN RN jb4 Corrections: (The following items were deleted from the chart) 01/28 02:32 02:30 01/28/2019 02:30 Transfer ordered to Psych Facility. Diagnosis is Hallucinations, cp unspecified; Paranoid personality disorder. Reason for transfer: Higher level of care. Accepting physician is psych facility. Condition is Stable. Problem is new. Symptoms are unchanged. cp 02:47 01/27 16:25 Urine Test ordered. cp jb4 01/28 02:48 01/27 16:25 IV Saline Lock ordered. cp 4 01/28 02:48 01/27 16:25 Urine Dipstick-Ancillary ordered. cp jb4 01/28 07:05 02:32 01/28/2019 02:30 Transfer ordered to Psych Facility. Diagnosis is Hallucinations, jb4 unspecified; Paranoia. Reason for transfer: Higher level of care. Accepting physician is psych facility. Condition is Stable. Problem is new. Symptoms are unchanged. cp
[2019-01-28] MEDS ORDERED: POTASSIUM 25 MEQ EFFERV TAB ONE (03:04)
[2019-01-28 07:21] VITALS: TEMP 98
[2019-01-28 07:33] LABS: Urine Bacteria NONE SEEN /HPF (<20); Urine Culture Reflex Order NOT NEEDED; Urine RBC NONE SEEN /HPF (NONE SEEN)
[2019-01-28 07:34] VITALS: BP 118/72; O2SAT 91
[2019-01-28 07:47] LABS: Barbiturates NEGATIVE (NEGATIVE); Benzodiazepines NEGATIVE (NEGATIVE); Cocaine POSITIVE (NEGATIVE); METHAMPHETAM NEGATIVE (NEGATIVE); Methadone NEGATIVE (NEGATIVE); Opiates NEGATIVE (NEGATIVE); Phencyclidine NEGATIVE (NEGATIVE); THC Cannibis NEGATIVE (NEGATIVE)
--- NOTE | 2019-01-28 09:43 | EKG ---
Test Date: 2019-01-27 Test Time: 22:55:06 Lap Winder: SIVA MEASUREMENT RESULTS: Intervals: Rate: 59 AR: 196 QRSD: 82 QT: 440 QTc: 435 Elmore: P: 51 AR: 196 QRS: 14 T: 33 INTERPRETIVE STATEMENTS: Sinus bradycardia Nonspecific T wave abnormality Abnormal ECG Compared to ECG 12/08/2017 22:05:53 T-wave abnormality now present Electronically Signed On 01-28-19 09:42:34 CDT by Dirk Contreras
== END 2019-01-28 07:05 ==
LOC: ER 15:45
DX: F22 Delusional disorders (principal); I10 Essential (primary) hypertension; E03.9 Hypothyroidism, unspecified; E78.00 Pure hypercholesterolemia, unspecified; J44.9 Chronic obstructive pulmonary disease, unspecified; I50.9 Heart failure, unspecified; Z72.0 Tobacco use; Z88.0 Allergy status to penicillin; Z88.1 Allergy status to other antibiotic agents
CPT/HCPCS: 93005; 85025; 80048; 36415; 80320; 80329 ×2; 85610; 80076; 80307 ×8; 85730; 81015; 70450; 96372; 99285; J1630; J1200

== ENCOUNTER 2019-12-09 13:22 | Emergency (ER) | payer OTHER ==
--- OUTSIDE RECORDS SUMMARY | 2019-12-09 13:40 | XMS REPORT | Continuity of Care Document ---
:1960 Author Organization [facility] t Address [address] [place] [address] Care Team Providers Name Role Phone Unavailable Unavailable Unavailable Problems This patient has no known problems. Allergies, Adverse Reactions, Alerts This patient has no known allergies or adverse reactions. Medications This patient has no known medications. Procedures This patient has no known procedures. Results This patient has no known results.
[2019-12-09 13:44] LABS: Absolute Lymphocytes (CBC) 1.6 K/uL (0.7-4.9); Basophils % 1.1 % (0-1.3); Hematocrit 44.4 % (36.0-45.0); Lymphocytes % 17.6 % (15.3-44.8); MPV 7.3 fL (7.6-11.3)
[2019-12-09 13:47] LABS: Protime INR 0.95
[2019-12-09 14:32] LABS: ALT/SGPT 28 U/L (12-78); AST/SGOT 23 U/L (15-37); Albumin 3.5 g/dL (3.4-5.0); Alkaline Phosphatase 89 U/L (45-117); BUN Blood Urea Nitrogen 17 mg/dL (7-18); Bicarbonate 26 mmol/L (21-32); Bilirubin Direct 0.2 mg/dL (0-0.2); Bilirubin Total 0.5 mg/dL (0.2-1.0); Glucose Level 120 mg/dL (74-106); Magnesium 2.1 mg/dL (1.8-2.4); NT PRO-BNP 83 pg/mL (<125); Protein, Total 7.4 g/dL (6.4-8.2); Sodium Level 138 mmol/L (136-145); Troponin (Emerg Dept Use Only) < 0.02 ng/mL (0.0-0.045)
--- NOTE | 2019-12-09 14:46 | ER ---
Nurse's Notes [facility] Name: Mckenna Ross Age: 59 yrs Sex: Female : 1960 Arrival Date: 12/09/2019 Time: 13:20 Bed 30 Private MD: Diagnosis: Presentation: 12/08 13:20 Chief complaint: EMS states: INTERMITTENT SUBSTERNAL CP SINCE LAST NIGHT. bp 13:20 Coronavirus screen: At this time, the client does not indicate any symptoms associated bp with coronavirus-19. Ebola Screen: No symptoms or risks identified at this time. Initial Sepsis Screen: Does the patient meet any 2 criteria? No. Patient's initial sepsis screen is negative. Does the patient have a suspected source of infection? No. Patient's initial sepsis screen is negative. Risk Assessment: Do you want to hurt yourself or someone else? Patient reports no desire to harm self or others. Onset of symptoms was December 08, 2019 at 21:00. Care prior to arrival: Medication(s) given: ASA, 81 mg, x 2. 13:20 Method Of Arrival: EMS: [facility] bp 13:20 Acuity: RAJNI 2 bp Triage Assessment: 13:20 General: Appears in no apparent distress. uncomfortable, obese, Behavior is bp cooperative, appropriate for age, anxious. Pain: Complains of pain in mid-sternal area. EENT: No deficits noted. Neuro: Level of Consciousness is awake, alert, obeys commands, Oriented to person, place, time, situation, Appropriate for age. Cardiovascular: Rhythm is sinus rhythm Chest pain is described as mild, quality is heaviness, is located in substernal area. Respiratory: Breath sounds with wheezes bilaterally. GI: No signs and/or symptoms were reported involving the gastrointestinal system. : No signs and/or symptoms were reported regarding the genitourinary system. Derm: No deficits noted. Musculoskeletal: No deficits noted. Historical: - Allergies: 13:24 Levaquin; bp 13:24 PENICILLINS; bp - Home Meds: 13:29 rosuvastatin 20 mg Oral tab 1 tab once daily [Active]; prednisone 10 mg Oral tab once bp daily [Active]; pantoprazole 40 mg oral TbEC 1 tab once daily [Active]; levothyroxine 100 mcg tab 1 tab once daily [Active]; amitriptyline 50 mg Oral tab 1 tab once daily [Active]; furosemide 40 mg Oral tab 1 tab once daily [Active]; aspirin 81 mg Oral TbEC 1 tab once daily [Active]; - PMHx: 13:24 CHF; COPD; DVT; High Cholesterol; Hypertension; Hypothyroidism; Myocardial infarction; bp - Immunization history:: Adult Immunizations up to date. - Social history:: Smoking status: Patient reports the use of cigarette tobacco products, smokes one pack cigarettes per day. - Family history:: not pertinent. - Hospitalizations: : No recent hospitalization is reported. Screenin:26 Abuse screen: Denies threats or abuse. Denies injuries from another. Nutritional bp screening: No deficits noted. Tuberculosis screening: No symptoms or risk factors identified. Fall Risk None identified. Assessment: 13:24 General: SEE TRIAGE NOTE. Pain: Pain does not radiate. Pain began 1 day ago. bp 14:23 Reassessment: PT REFUSING TO STAY, PT REFUSING TO SPEAK WITH PROVIDER OR STAFF ABOUT bp LEAVING AMA, LEFT WITHOUT S/O AMA PAPERS. PT BELLIGERENT AND USING PROFANITY WITH STAFF. Vital Signs: 13:20 BP 140 / 88; Pulse 74; Resp 18; Temp 98.2; Pulse Ox 95% on R/A; bp 14:15 BP 108 / 74; Pulse 67; Resp 17; Pulse Ox 95% ; bp ED Course: 13:20 Patient arrived in ED. bp 13:20 Arm band placed on. bp 13:23 Triage completed. bp 13:24 EKG done, by set up mold technician. reviewed by Ethan Morales MD. Inserted saline lock: 20 gauge in co right forearm, using aseptic technique. Blood collected. 13:25 Ethan Morales MD is Attending Physician. rn 14:22 Juan Del Castillo, TASHIA is Primary Nurse. bp 14:24 IV discontinued, intact, bleeding controlled, No redness/swelling at site. Pressure bp dressing applied. Administered Medications: No medications were administered Outcome: 14:25 AMA Other PT REFUSING TO SIGN PAPERS, STATING "I DIDN'T SIGN NO PAPERS SO I AIN'T GONNA bp PAY FOR NOTHING." 14:45 Patient left the ED. eb Signatures: Ethan Morales MD MD rn Thompson, [place] co Juan Del Castillo RN RN Yoselin Rodarte
[2019-12-09 14:50] VITALS: BP 108/74; O2SAT 95
--- NOTE | 2019-12-10 16:20 | EDPHYS ---
Physician Documentation [facility] Name: Mckenna Ross Age: 59 yrs Sex: Female : 1960 Arrival Date: 12/09/2019 Time: 13:20 Bed 30 Private MD: ED Physician Ethan Morales HPI: 12/08 14:55 This 59 yrs old Female presents to ER via EMS with complaints of Chest Pain. rn 14:55 The patient or guardian reports chest pain that is located primarily in the substernal rn area. Onset: last night. The pain does not radiate. The chest pain is described as aching, dull. Duration: The patient or guardian reports multiple episodes, that are intermittent. Modifying factors: The symptoms are alleviated by nothing. the symptoms are aggravated by nothing. Severity of pain: At its worst the pain was moderate in the emergency department the pain has improved. The patient has experienced similar episodes in the past. Reports intermittent chest pain sinec last night, dull/achy/sharp, not worse with anything, reports cough and mild sob but also not much different from COPD. Reports "mild heart attack" in past. Historical: - Allergies: 13:24 Levaquin; bp 13:24 PENICILLINS; bp - Home Meds: 13:29 rosuvastatin 20 mg Oral tab 1 tab once daily [Active]; prednisone 10 mg Oral tab once bp daily [Active]; pantoprazole 40 mg oral TbEC 1 tab once daily [Active]; levothyroxine 100 mcg tab 1 tab once daily [Active]; amitriptyline 50 mg Oral tab 1 tab once daily [Active]; furosemide 40 mg Oral tab 1 tab once daily [Active]; aspirin 81 mg Oral TbEC 1 tab once daily [Active]; - PMHx: 13:24 CHF; COPD; DVT; High Cholesterol; Hypertension; Hypothyroidism; Myocardial infarction; bp - Immunization history:: Adult Immunizations up to date. - Social history:: Smoking status: Patient reports the use of cigarette tobacco products, smokes one pack cigarettes per day. - Family history:: not pertinent. - Hospitalizations: : No recent hospitalization is reported. ROS: 14:55 Constitutional: Negative for fever, chills, and weight loss, Eyes: Negative for injury, rn pain, redness, and discharge, Neck: Negative for injury, pain, and swelling, Cardiovascular: Negative for palpitations, and edema, Respiratory: Negative for wheezing Abdomen/GI: Negative for abdominal pain, nausea, vomiting, diarrhea, and constipation, MS/Extremity: Negative for injury and deformity, Skin: Negative for injury, rash, and discoloration, Neuro: Negative for headache, weakness, numbness, tingling, and seizure. Exam: 14:55 Constitutional: This is a well developed, well nourished patient who is awake, alert, rn and in no acute distress. Head/Face: Normocephalic, atraumatic. Cardiovascular: Regular rate and rhythm. No pulse deficits. Respiratory: No increased work of breathing, no retractions or nasal flaring. Abdomen/GI: soft, non-tender Skin: Warm, dry MS/ Extremity: Pulses equal, no cyanosis. Neurovascular intact. Full, normal range of motion. Equal circumference. Neuro: Awake and alert, GCS 15 Vital Signs: 13:20 BP 140 / 88; Pulse 74; Resp 18; Temp 98.2; Pulse Ox 95% on R/A; bp 14:15 BP 108 / 74; Pulse 67; Resp 17; Pulse Ox 95% ; bp MDM: 13:25 Patient medically screened. rn 14:55 Differential diagnosis: acute myocardial infarction, acute pericarditis, anxiety, rn coronary artery disease chest wall pain, congestive heart failure pleurisy, pneumonia, pneumothorax, pulmonary embolus, stable angina, unstable angina. Data reviewed: vital signs, nurses notes, EKG, and as a result, I will admit patient. ED course: Notified by nurse that patient became upset for unknown reason, about an hour into her visit, demanded to leave, using profanity, and left, refusing to sign papers. Told her initially when evaluated that she was going to require admission 2/2 chest pain and PMH.. 12/08 13:24 Order name: Basic Metabolic Panel; Complete Time: 14:54 mt 12/08 13:24 Order name: CBC with Diff; Complete Time: 14:54 mt 12/08 13:24 Order name: LFT's; Complete Time: 14:54 nm 12/08 13:24 Order name: Magnesium; Complete Time: 14:54 nm 12/08 13:24 Order name: NT PRO-BNP; Complete Time: 14:54 nm 12/08 13:24 Order name: PT-INR; Complete Time: 14:54 mt 12/08 13:24 Order name: Troponin (emerg Dept Use Only); Complete Time: 14:54 mt 12/08 13:24 Order name: EKG; Complete Time: 13:25 mt 12/08 13:24 Order name: Cardiac monitoring; Complete Time: 13:25 mt 12/08 13:24 Order name: EKG - Nurse/Tech; Complete Time: 13:25 mt 12/08 13:25 Order name: IV Saline Lock; Complete Time: 13:25 mt 12/08 13:25 Order name: Labs collected and sent; Complete Time: 13:25 mt 12/08 13:32 Order name: Procalcitonin; Complete Time: 14:54 rn 12/08 13:25 Order name: O2 Per Protocol; Complete Time: 13:25 mt 12/08 13:25 Order name: O2 Sat Monitoring; Complete Time: 13:25 mt Administered Medications: No medications were administered Disposition: 12/09/19 14:45 Patient has left against medical advice. - Patients states they are going to Home. - Condition is Stable. Signatures: Dispatcher [employer] EDMS Ethan Morales MD MD rn Thompson, [facility] Juan Del Castillo, RN RN Yoselin Rodarte Corrections: (The following items were deleted from the chart) 14:30 13:25 Chest Single View+RAD.RAD.BRZ ordered. EDMS EDMS
== END 2019-12-09 14:45 | disposition left against medical advice (07) ==
LOC: ER 13:22
DX: R07.9 Chest pain, unspecified (principal); R05 Cough; J44.9 Chronic obstructive pulmonary disease, unspecified; I10 Essential (primary) hypertension; E78.00 Pure hypercholesterolemia, unspecified; E03.9 Hypothyroidism, unspecified; I25.2 Old myocardial infarction; Z79.82 Long term (current) use of aspirin; Z88.0 Allergy status to penicillin; Z88.1 Allergy status to other antibiotic agents; F17.210 Nicotine dependence, cigarettes, uncomplicated
CPT/HCPCS: 36415; 80048; 80076; 83735; 83880; 84145; 84484; 85025; 85610; 93005; 99284

== ENCOUNTER 2020-06-18 17:01 | Emergency (ER) | payer OTHER ==
--- OUTSIDE RECORDS SUMMARY | 2020-06-18 17:06 | XMS REPORT | Continuity of Care Document ---
:1960 Author Organization [facility] t Address [address] [place] [address] Care Team Providers Name Role Phone Doctor Unassigned, Name Attending Clinician Unavailable Problems This patient has no known problems. Allergies, Adverse Reactions, Alerts This patient has no known allergies or adverse reactions. Medications This patient has no known medications. Procedures This patient has no known procedures. Encounters Start End Encounter Admission Attending Care Care Encounter Source Date/Time Date/Time Type Type Clinicians Facility Department ID 2020-03-30 2020-03-30 Orders Doctor RIZZO [id number] 00:00:00 00:00:00 Only UnassignedERIN [id number] [place] [facility] [id number] Results This patient has no known results.
[2020-06-18] MEDS ORDERED: HYDROCODONE/APAP 10/325 TAB ONE (18:03)
--- NOTE | 2020-06-18 18:26 | EDPHYS ---
Physician Documentation [facility] Name: Mckenna Ross Age: 59 yrs Sex: Female : 1960 Arrival Date: 06/18/2020 Time: 17:07 Bed 30 Private MD: ED Physician Yariel Page HPI: 06/18 17:07 This 59 yrs old Female presents to ER via EMS with complaints of leg pain. jmm 17:07 The complaints affect the left calf. Onset: The symptoms/episode began/occurred jmm gradually, 3 day(s) ago. Modifying factors: The symptoms are alleviated by nothing. the symptoms are aggravated by movement. Associated signs and symptoms: Pertinent negatives fever. This is a 59 year old female with a history of CHF, COPD, DVT that presents to the ED with complaints of left lower leg pain beginning this past weekend. Denies fever. . 18:19 Patient also complains of intermittent chest pain along with SOB. . jmm Historical: - Allergies: 17:17 Levaquin; zb 17:17 PENICILLINS; zb - Home Meds: 17:17 amitriptyline 50 mg Oral tab 1 tab once daily [Active]; aspirin 81 mg Oral TbEC 1 tab zb once daily [Active]; furosemide 40 mg Oral tab 1 tab once daily [Active]; levothyroxine 100 mcg tab 1 tab once daily [Active]; pantoprazole 40 mg Oral TbEC 1 tab once daily [Active]; rosuvastatin 20 mg Oral tab 1 tab once daily [Active]; prednisone 10 mg Oral tab once daily [Active]; - PMHx: 17:17 CHF; COPD; DVT; High Cholesterol; Hypertension; Hypothyroidism; Myocardial infarction; zb - Immunization history:: Adult Immunizations unknown. - Social history:: Smoking status: Patient reports the use of cigarette tobacco products, smokes one pack cigarettes per day. ROS: 18:19 Constitutional: Negative for fever, chills, and weight loss. jmm 18:19 Cardiovascular: Positive for chest pain. 18:19 Respiratory: Positive for shortness of breath. 18:19 All other systems are negative. Exam: 18:19 Constitutional: This is a well developed, well nourished patient who is awake, alert, jmm and in no acute distress. Head/Face: atraumatic. Eyes: EOMI, no conjunctival erythema appreciated ENT: Moist Mucus Membranes Neck: Trachea midline, Supple Chest/axilla: Normal chest wall appearance and motion. Cardiovascular: Regular rate and rhythm. No edema appreciated Respiratory: Normal respirations, no respiratory distress appreciated Abdomen/GI: Non distended, soft Back: Normal ROM Skin: General appearance color normal 18:19 Neuro: Awake and alert, normal gait Psych: Behavior is normal, Mood is normal, Patient is cooperative and pleasant 18:19 Musculoskeletal/extremity: DVT Exam: no erythema, no increased warmth, pain, that is mild, of the left leg, tenderness, that is moderate, of the left leg. Vital Signs: 17:08 BP 133 / 78; Pulse 79; Resp 22; Temp 98.3; Pulse Ox 95% ; Pain 5/10; zb MDM: 17:20 Patient medically screened. [facility] 18:22 Data reviewed: vital signs, nurses notes. Counseling: I had a detailed discussion with [facility] the patient and/or guardian regarding: the historical points, exam findings, and any diagnostic results supporting the discharge/admit diagnosis, radiology results, the need for outpatient follow up, to return to the emergency department if symptoms worsen or persist or if there are any questions or concerns that arise at home. Refusal of service: The patient/guardian displays adequate decision making capability and despite a detailed discussion of alternatives, benefits, risks, and consequences refuses: all lab tests, all X-rays. ED course: Patient states having ongoing chest pain which has been consistent chronically but does not want this evaluated this evening. Patient refused and is given strict return precautions. Patient understood and agrees with the plan of care. . 06/18 17:30 Order name: US Extremity Venous Unilateral Ltd; Complete Time: 18:44 [facility] Administered Medications: 17:46 Drug: Hazard 10 mg-325 mg 1 tabs Route: PO; zb 18:40 Follow up: Response: No adverse reaction; Pain is decreased zb Disposition: 06/18/20 18:26 Discharged to Home. Impression: Pain in left lower leg. - Condition is Stable. - Discharge Instructions: Musculoskeletal Pain. - Medication Reconciliation Form, Thank You Letter, Antibiotic Education, Prescription Opioid Use form. - Follow up: Private Physician; When: 2 - 3 days; Reason: Recheck today's complaints, Continuance of care, Re-evaluation by your physician. Addendum: 06/22/2020 05:54 Co-signature as Attending Physician, Yariel Page MD I agree with the assessment and k dr plan of care. Signatures: Dispatcher [employer] EDMS Yariel Page MD MD [facility] Nic Laguna PA PA jmm Huhn, Donald 4 Jacinta Messer, RN RN zb Corrections: (The following items were deleted from the chart) 06/18 18:55 18:26 06/18/2020 18:26 Discharged to Home. Impression: Pain in left lower leg. dh4 Condition is Stable. Forms are Medication Reconciliation Form, Thank You Letter, Antibiotic Education, Prescription Opioid Use. Follow up: Private Physician; When: 2 - 3 days; Reason: Recheck today's complaints, Continuance of care, Re-evaluation by your physician. rito
--- NOTE | 2020-06-18 18:26 | ER ---
Nurse's Notes [facility] Name: Mckenna Ross Age: 59 yrs Sex: Female : 1960 Arrival Date: 06/18/2020 Time: 17:07 Bed 30 Private MD: Diagnosis: Pain in left lower leg Presentation: 06/18 17:08 Chief complaint: EMS states: Patient coming from home c/o left leg pain and swelling zb since Monday. cramping and numbness in LLE. pain worsen today. history of DVT in left leg. patient also c/o headache, mild chest pain, and sob x6 months. Coronavirus screen: At this time, the client does not indicate any symptoms associated with coronavirus-19. Ebola Screen: No symptoms or risks identified at this time. Initial Sepsis Screen: Does the patient meet any 2 criteria? No. Patient's initial sepsis screen is negative. Does the patient have a suspected source of infection? No. Patient's initial sepsis screen is negative. Risk Assessment: Do you want to hurt yourself or someone else? Patient reports no desire to harm self or others. Onset of symptoms was May 14, 2020. 17:08 Acuity: RAJNI 3 zb 17:08 Method Of Arrival: EMS: [facility] zb Triage Assessment: 17:18 General: Appears in no apparent distress. uncomfortable, Behavior is calm, cooperative, zb appropriate for age, Reports fatigue for chronic . Denies fever, feeling ill, chills. Pain: Complains of pain in left hamstring and left calf up leg Pain currently is 5 out of 10 on a pain scale. Quality of pain is described as aching, dull, numb. EENT: No signs and/or symptoms were reported regarding the EENT system. Neuro: Level of Consciousness is awake, alert, obeys commands, Oriented to person, place, time, situation. Cardiovascular: Reports chest pain, fatigue, Denies diaphoresis, Heart tones S1 S2 present Capillary refill < 3 seconds Patient's skin is warm and dry. Pulses are all present. Edema is 2+ to left ankle, left foot, right ankle and right foot. Respiratory: Airway is patent Respiratory effort is labored, Respiratory pattern is tachypnea. GI: Abdomen is round obese, Bowel sounds present X 4 quads. : No signs and/or symptoms were reported regarding the genitourinary system. Derm: Skin is intact, is healthy with good turgor, Skin is dry, Skin is normal, Skin temperature is warm. Musculoskeletal: Range of motion: intact in all extremities, Swelling absent. Historical: - Allergies: 17:17 Levaquin; zb 17:17 PENICILLINS; zb - Home Meds: 17:17 amitriptyline 50 mg Oral tab 1 tab once daily [Active]; aspirin 81 mg Oral TbEC 1 tab zb once daily [Active]; furosemide 40 mg Oral tab 1 tab once daily [Active]; levothyroxine 100 mcg tab 1 tab once daily [Active]; pantoprazole 40 mg Oral TbEC 1 tab once daily [Active]; rosuvastatin 20 mg Oral tab 1 tab once daily [Active]; prednisone 10 mg Oral tab once daily [Active]; - PMHx: 17:17 CHF; COPD; DVT; High Cholesterol; Hypertension; Hypothyroidism; Myocardial infarction; zb - Immunization history:: Adult Immunizations unknown. - Social history:: Smoking status: Patient reports the use of cigarette tobacco products, smokes one pack cigarettes per day. Screenin:38 Abuse screen: Denies threats or abuse. Denies injuries from another. Nutritional zb screening: No deficits noted. Tuberculosis screening: No symptoms or risk factors identified. Fall Risk None identified. Assessment: 17:21 Reassessment: ECP at bedside. zb 18:14 Reassessment: ecp at bedside discussing care. zb Vital Signs: 17:08 BP 133 / 78; Pulse 79; Resp 22; Temp 98.3; Pulse Ox 95% ; Pain 5/10; zb ED Course: 17:07 Patient arrived in ED. zb 17:11 Triage completed. zb 17:16 Nic Laguna PA is PHCP. [facility] 17:16 Yariel Page MD is Attending Physician. [facility] 17:37 Jacinta Messer RN is Primary Nurse. zb 17:38 Patient has correct armband on for positive identification. Placed in gown. Bed in low zb position. Call light in reach. Side rails up X 1. Pulse ox on. NIBP on. Door closed. Noise minimized. 17:38 Arm band placed on. zb 18:15 US Extremity Venous Unilateral Ltd In Process Unspecified. EDMS Administered Medications: 17:46 Drug: Medanales 10 mg-325 mg 1 tabs Route: PO; zb 18:40 Follow up: Response: No adverse reaction; Pain is decreased zb Outcome: 18:26 Discharge ordered by MD. veras 18:55 Patient left the ED. [facility] Signatures: Dispatcher [employer] EDMS Nic Laguna PA PA jmm Huhn, Donald [facility] Jacinta Messer RN RN zb Corrections: (The following items were deleted from the chart) 17:38 17:18 Pain: Complains of pain in left knee, left shaver, anterior aspect of left ankle zb and dorsum of left foot up leg Pain currently is 5 out of 10 on a pain scale. Quality of pain is described as sharp, numb, zb 18:17 17:08 BP 133 / ???; Pulse 79bpm; Resp 22bpm; Pulse Ox 95%; Temp 98.3F; Pain 5/10; zb zb
--- NOTE | 2020-06-18 18:29 | RAD REPORT ---
EXAM DESCRIPTION: USExtremity Venous Uni Ltd06/18/2020 6:15 pm CLINICAL HISTORY: left leg pain and swelling. COMPARISON: 2018 FINDINGS: Left common femoral, superficial femoral, popliteal and posterior tibial veins are compre ssible and demonstrate augmentation. Doppler demonstrates good flow. IMPRESSION: No evidence of deep venous thrombosis involving the left lower extremity.
[2020-06-18 19:55] VITALS: BP 133/78; TEMP 98.3; O2SAT 95
== END 2020-06-18 18:55 | disposition home or self-care (01) ==
LOC: ER 17:01
DX: M79.662 Pain in left lower leg (principal); I10 Essential (primary) hypertension; E78.00 Pure hypercholesterolemia, unspecified; I50.9 Heart failure, unspecified; J44.9 Chronic obstructive pulmonary disease, unspecified; F17.210 Nicotine dependence, cigarettes, uncomplicated; Z79.82 Long term (current) use of aspirin; Z86.718 Personal history of other venous thrombosis and embolism; Z88.0 Allergy status to penicillin; Z88.1 Allergy status to other antibiotic agents
CPT/HCPCS: 93971; 99284

== ENCOUNTER 2020-06-26 13:13 | Inpatient (IN) | payer OTHER ==
--- OUTSIDE RECORDS SUMMARY | 2020-06-26 13:16 | XMS REPORT | Continuity of Care Document ---
:1960 Author Organization [facility] t Address [address] [place] [address] Care Team Providers Name Role Phone Doctor [...] Facility Department ID 2020-03-30 2020-03-30 Orders Doctor SO [id number] 00:00:00 00:00:00 Only UnassignedERIN [id number] [place] [facility] [id number] Results This patient has no known results.
--- NOTE | 2020-06-26 14:37 | RAD REPORT ---
EXAM DESCRIPTION: USExtremity Venous Uni Ltd06/26/2020 2:01 pm CLINICAL HISTORY: left leg pain COMPARISON: May 2020 FINDINGS: Left common femoral vein is patent. Echogenic material consistent with thrombus is present within the left superficial femoral, left popl iteal and left posterior tibial veins. The veins are not compressible with little to no flow. . IMPRESSION: Acute thrombus left superficial femoral, left popliteal and left posterior tibial veins
[2020-06-26 15:04] LABS: Absolute Lymphocytes (CBC) 1.8 K/uL (0.7-4.9); Basophils % 0.9 % (0-1.3); Hematocrit 46.4 % (36.0-45.0); Lymphocytes % 13.3 % (15.3-44.8); MPV 6.9 fL (7.6-11.3); RBC Red Blood Cell Count 4.91 M/uL (3.86-4.86)
[2020-06-26] MEDS ORDERED: MORPHINE 4 MG/ML SYR ONE (15:11)
[2020-06-26 15:21] LABS: Protime INR 1.04
[2020-06-26 15:24] LABS: ALT/SGPT 19 U/L (12-78); AST/SGOT 15 U/L (15-37); Albumin 3.1 g/dL (3.4-5.0); Alkaline Phosphatase 120 U/L (45-117); BUN Blood Urea Nitrogen 21 mg/dL (7-18); Bicarbonate 24 mmol/L (21-32); Bilirubin Direct 0.1 mg/dL (0-0.2); Bilirubin Total 0.3 mg/dL (0.2-1.0); Glucose Level 164 mg/dL (74-106); Magnesium 2.1 mg/dL (1.8-2.4); NT PRO-BNP 20 pg/mL (<125); Potassium 4.2 mmol/L (3.5-5.1); Sodium Level 135 mmol/L (136-145); Troponin (Emerg Dept Use Only) < 0.02 ng/mL (0.0-0.045)
--- NOTE | 2020-06-26 15:45 | RAD REPORT ---
EXAM DESCRIPTION: Shaka Single View06/26/2020 2:23 pm CLINICAL HISTORY: sob COMPARISON: 2019 FINDINGS: The lungs appear clear of acute infiltrate. The heart is normal size IMPRESSION: No acute abnormalities displayed
--- NOTE | 2020-06-26 15:45 | RAD REPORT ---
EXAM DESCRIPTION: CT - Chest For Pe Angio - 06/26/2020 3:19 pm CLINICAL HISTORY: sob COMPARISON: 2012 and 2009 TECHNIQUE: Dynamically enhanced axial 3 mm thick images of the chest were obtained during administra tion of <100> mL Isovue 370 IV contrast. Coronal and oblique reconstruction images were generated and reviewed. Exam utilizes a protocol for optimal evaluation of pulmonary arterial tree. Maximum intensity projections 3D imaging was utilized All CT scans are performed using dose optimization technique as appropriate and may include automated exposure control or mA/KV adjustment according to patient size. FINDINGS: (Thrombus is present within the branches of the right lower and right middle lobe arteries . No left pulmonary thrombus. No thrombus within the main pulmonary and right and main pulmonary celia john. A thoracic aortic aneurysm is not noted. A pleural effusion is not seen. A pericardial effusion is not seen. A lung consolidation is not present. Anterior mediastinal lymph node is unchanged and benign IMPRESSION: Right pulmonary emboli
[2020-06-26] MEDS ORDERED: FENTANYL CITR 100 MCG/2 ML ONE (17:04)
[2020-06-26] MEDS ORDERED: RIVAROXABAN 15 MG TABLET PO ONE (17:15)
--- NOTE | 2020-06-26 18:05 | ER ---
Nurse's Notes [facility] Name: Mckenna Ross Age: 59 yrs Sex: Female : 1960 Arrival Date: 06/26/2020 Time: 13:19 Bed 18 Private MD: Diagnosis: Pulmonary embolism without acute cor pulmonale;Acute embolism and thrombosis of deep veins of lower extremity-left Presentation: 06/26 13:22 Chief complaint: Patient states: left lower leg and foot pain. dm14 15:47 Coronavirus screen: Client denies travel out of the [place] in the last 14 days. Ebola dm14 Screen: No symptoms or risks identified at this time. Initial Sepsis Screen: Does the patient meet any 2 criteria? No. Patient's initial sepsis screen is negative. Does the patient have a suspected source of infection? No. Patient's initial sepsis screen is negative. Risk Assessment: Do you want to hurt yourself or someone else? Patient reports no desire to harm self or others. Onset of symptoms is unknown. 15:47 Method Of Arrival: EMS: [facility] dm14 15:47 Acuity: RAJNI 3 dm14 Triage Assessment: 14:00 General: Appears in no apparent distress. comfortable, obese, Behavior is calm, dm14 cooperative, appropriate for age. 14:00 Pain: Complains of pain in Pt has pain in left foot and lower leg Pain does not dm14 radiate. Pain at worst was 10 out of 10 on a pain scale. Historical: - Allergies: 14:00 Levaquin; dm14 14:00 PENICILLINS; dm14 - Home Meds: 14:00 amitriptyline 50 mg Oral tab 1 tab once daily [Active]; aspirin 81 mg Oral TbEC 1 tab dm14 once daily [Active]; furosemide 40 mg Oral tab 1 tab once daily [Active]; levothyroxine 100 mcg tab 1 tab once daily [Active]; pantoprazole 40 mg Oral TbEC 1 tab once daily [Active]; prednisone 10 mg Oral tab once daily [Active]; rosuvastatin 20 mg Oral tab 1 tab once daily [Active]; - PMHx: 14:00 CHF; COPD; DVT; High Cholesterol; Hypertension; Hypothyroidism; Myocardial infarction; dm14 - Immunization history:: Adult Immunizations up to date. - Social history:: Smoking status: Patient reports the use of cigarette tobacco products, smokes one-half pack cigarettes per day. Screenin:00 Abuse screen: Denies threats or abuse. Denies injuries from another. Nutritional dm14 screening: No deficits noted. Tuberculosis screening: No symptoms or risk factors identified. Fall Risk None identified. Assessment: 14:00 General: Appears in no apparent distress. uncomfortable, Behavior is calm, cooperative, dm14 appropriate for age. Pain: Complains of pain in pt has pain in left lower leg and foot Pain does not radiate. Pain currently is 10 out of 10 on a pain scale. Quality of pain is described as Pain began Pt states pain started 7 or 8 days ago. 16:00 Reassessment: states left leg/foot is not too painful at rest, elevated. dm14 17:30 Reassessment: Attempted to walk with walker, but was only able to take a couple of dm14 steps due to pain. C Page made aware. 18:50 Reassessment: [place] and juice given. Awaiting admission. dm14 Vital Signs: 14:13 BP 126 / 91; Pulse 88; Resp 24; Pulse Ox 97% on R/A; dh4 14:15 BP 111 / 73; Pulse 85; Resp 18; Pulse Ox 96% ; dm14 14:30 BP 122 / 99; Pulse 83; Resp 18; Pulse Ox 95% ; dm14 15:00 BP 117 / 76; Pulse 91; Resp 18; Pulse Ox 94% ; dm14 16:30 BP 129 / 86; Pulse 92; Resp 18; Pulse Ox 94% ; dm14 17:00 BP 116 / 74; Pulse 87; Resp 18; Pulse Ox 95% on R/A; dh4 17:15 BP 124 / 46; Pulse 88; Resp 18; Pulse Ox 94% ; dm14 18:14 BP 124 / 71; Pulse 93; Resp 18; Pulse Ox 94% on R/A; dh4 19:00 BP 127 / 71; Pulse 91; Resp 18; Pulse Ox 97% ; dm14 19:30 BP 127 / 71; Pulse 91; Resp 18; Pulse Ox 97% on R/A; rv 20:00 BP 139 / 98; Pulse 96; Resp 18; Temp 98.2; Pulse Ox 96% on R/A; rv ED Course: 13:19 Patient arrived in ED. iw 13:21 Jovana Ramírez, RN is Primary Nurse. dm14 13:25 Juan Carlos Kern PA is PHCP. cp 13:25 Yariel Page MD is Attending Physician. cp 14:00 Patient has correct armband on for positive identification. Bed in low position. Call dm14 light in reach. 14:01 US Extremity Venous Unilateral Ltd In Process Unspecified. EDMS 14:23 XRAY Chest (1 view) In Process Unspecified. EDMS 15:19 CT Chest For PE Angio In Process Unspecified. EDMS 15:50 Triage completed. dm14 18:03 Chavez Morales MD is Hospitalizing Provider. cp 20:11 No provider procedures requiring assistance completed. Patient admitted, IV remains in ea place. Administered Medications: 14:50 Drug: morphine 4 mg Route: IM; Site: left deltoid; dm14 19:29 Follow up: Response: No adverse reaction dm14 16:50 Drug: fentaNYL (PF) 25 mcg Route: IVP; Site: right antecubital; dm14 19:30 Follow up: Response: No adverse reaction; Pain is decreased dm14 17:30 Drug: Xarelto 15 mg Route: PO; dm14 19:30 Follow up: Response: No adverse reaction dm14 Outcome: 18:04 Decision to Hospitalize by Provider. cp 19:30 Instructed on the need for admit. ea 20:11 Admitted to Med/surg accompanied by tech, via stretcher, room 224, Other sbar, ekg rv Report called to NURSE V 20:11 Condition: good 20:11 Instructed on the need for admit. 20:13 Patient left the ED. rv Signatures: Dispatcher [employer] EDMO Marie Spicer RN RN Juan Carlos Kern PA PA cp Antunez, Elena, RN RN ea Vicente, Ronaldo, RN RN rv Huhn, [facility] Jovana Ramírez RN RN dm14 Corrections: (The following items were deleted from the chart) 15:46 15:00 morphine 4 mg IM in left deltoid dm14 dm14 16:40 13:22 Chief complaint: dm14 dm14 19:16 19:03 General: Appears in no apparent distress. uncomfortable, Behavior is calm, dm14 cooperative, appropriate for age, dm14 19:16 19:03 Pain: Complains of pain in pt has pain in left lower leg and foot Pain does not dm14 radiate. Pain currently is 10 out of 10 on a pain scale. Quality of pain is described as Pain began Pt states pain started 7 or 8 days ago 4 19: Abuse screen: Denies threats or abuse. Denies injuries from another. dm14 4 19:00 Nutritional screening: No deficits noted. dm14 4 : 19: Tuberculosis screening: No symptoms or risk factors identified. dm14 4 : 19: Fall Risk None identified. dm14 4
--- NOTE | 2020-06-26 18:05 | EDPHYS ---
Physician Documentation [facility] Name: Mckenna Ross Age: 59 yrs Sex: Female : 1960 Arrival Date: 06/26/2020 Time: 13:19 Bed 18 Private MD: ED Physician Yariel Page HPI: 06/26 13:40 This 59 yrs old Female presents to ER via EMS with complaints of Leg Pain. cp 13:40 The patient presents with pain, that is acute, swelling, tenderness. The complaints cp affect the left lower leg. Context: resulted from an unknown cause, patient reports unable due to increasing pain of left lower leg for past 2 days. Onset: The symptoms/episode began/occurred last month. Associated signs and symptoms: Pertinent positives: calf tenderness, swelling, shortness of breath. Treatment prior to arrival includes: no previous treatment. 13:40 Patient was seen in this ED 06-18-2020 with complaints of pain to left lower leg. cp Patient had US of left lower extremity performed that was negative for DVT. Patient reports history of DVT of left leg and pulmonary embolism in the past. Not currently taking blood thinner. Reports increasing pain to left lower leg over past 2 days restricting mobility. Patient reports unable to bear weight due to pain on left lower leg. Historical: - Allergies: 14:00 Levaquin; dm14 14:00 PENICILLINS; dm14 - Home Meds: 14:00 amitriptyline 50 mg Oral tab 1 tab once daily [Active]; aspirin 81 mg Oral TbEC 1 tab dm14 once daily [Active]; furosemide 40 mg Oral tab 1 tab once daily [Active]; levothyroxine 100 mcg tab 1 tab once daily [Active]; pantoprazole 40 mg Oral TbEC 1 tab once daily [Active]; prednisone 10 mg Oral tab once daily [Active]; rosuvastatin 20 mg Oral tab 1 tab once daily [Active]; - PMHx: 14:00 CHF; COPD; DVT; High Cholesterol; Hypertension; Hypothyroidism; Myocardial infarction; dm14 - Immunization history:: Adult Immunizations up to date. - Social history:: Smoking status: Patient reports the use of cigarette tobacco products, smokes one-half pack cigarettes per day. ROS: 13:50 Constitutional: Negative for body aches, chills, fever, poor PO intake. cp 13:50 Eyes: Negative for injury, pain, redness, and discharge. cp 13:50 ENT: Negative for ear pain, sore throat, difficulty swallowing, difficulty handling secretions. 13:50 Cardiovascular: Negative for chest pain, palpitations. 13:50 Respiratory: Positive for shortness of breath, at rest. Negative for cough, wheezing. 13:50 Abdomen/GI: Negative for abdominal pain, nausea, vomiting, and diarrhea. 13:50 Back: Negative for radiated pain. 13:50 MS/extremity: Positive for pain, swelling, tenderness, of the left lower leg, Negative for injury or acute deformity, decreased range of motion, paresthesias. 13:50 Skin: Positive for erythema, Negative for rash. 13:50 Neuro: Negative for altered mental status, headache, numbness, syncope, weakness. 13:50 All other systems are negative. Exam: 13:55 Constitutional: The patient appears in no acute distress, alert, awake, cp non-diaphoretic, non-toxic, well developed, well nourished, obese. 13:55 Head/Face: Normocephalic, atraumatic. cp 13:55 Eyes: Periorbital structures: appear normal, Conjunctiva: normal, no exudate, no injection, Sclera: no appreciated abnormality, Lids and lashes: appear normal, bilaterally. 13:55 ENT: External ear(s): are unremarkable, Nose: is normal, Mouth: Lips: moist, Oral mucosa: moist, Posterior pharynx: Airway: no evidence of obstruction, patent. 13:55 Neck: ROM/movement: is normal, is supple, without pain, no range of motions limitations. 13:55 Chest/axilla: Inspection: normal, Palpation: is normal, no crepitus, no tenderness. 13:55 Cardiovascular: Rate: normal, Rhythm: regular, Edema: is not appreciated, JVD: is not appreciated. 13:55 Respiratory: the patient does not display signs of respiratory distress, Respirations: labored breathing, is not present, tachypnea, that is mild, Breath sounds: are clear throughout, no decreased breath sounds, no stridor, no wheezing. 13:55 Abdomen/GI: Inspection: abdomen appears normal, Palpation: abdomen is soft and non-tender, in all quadrants. 13:55 Back: pain, is absent, ROM is normal. 13:55 Musculoskeletal/extremity: ROM: limited passive range of motion due to pain, in the left lower leg, Pulses: noted to be 2+ in the left dorsalis pedis artery, the left lower leg Severe pain noted. DVT Exam: pain, that is marked, of the left lower leg, positive Homans' sign noted on exam, erythema, that is mild, of the lateral aspect left lower leg, increased warmth, that is mild, of the left lower leg. 13:55 Skin: cellulitis, is not appreciated. 13:55 Neuro: Orientation: to person, place \\T\\ time. Mentation: is normal. Vital Signs: 14:13 BP 126 / 91; Pulse 88; Resp 24; Pulse Ox 97% on R/A; dh4 14:15 BP 111 / 73; Pulse 85; Resp 18; Pulse Ox 96% ; dm14 14:30 BP 122 / 99; Pulse 83; Resp 18; Pulse Ox 95% ; dm14 15:00 BP 117 / 76; Pulse 91; Resp 18; Pulse Ox 94% ; dm14 16:30 BP 129 / 86; Pulse 92; Resp 18; Pulse Ox 94% ; dm14 17:00 BP 116 / 74; Pulse 87; Resp 18; Pulse Ox 95% on R/A; dh4 17:15 BP 124 / 46; Pulse 88; Resp 18; Pulse Ox 94% ; dm14 18:14 BP 124 / 71; Pulse 93; Resp 18; Pulse Ox 94% on R/A; dh4 19:00 BP 127 / 71; Pulse 91; Resp 18; Pulse Ox 97% ; dm14 19:30 BP 127 / 71; Pulse 91; Resp 18; Pulse Ox 97% on R/A; rv 20:00 BP 139 / 98; Pulse 96; Resp 18; Temp 98.2; Pulse Ox 96% on R/A; rv MDM: 13:32 Patient medically screened. cp 14:20 Differential diagnosis: closed fracture, DVT, cellulitis, pulmonary embolism, CHF. cp 16:00 Data reviewed: vital signs, nurses notes, lab test result(s), radiologic studies, CT cp scan, plain films, ultrasound. 16:00 Counseling: I had a detailed discussion with the patient and/or guardian regarding: the cp historical points, exam findings, and any diagnostic results supporting the discharge/admit diagnosis, lab results, radiology results. 16:15 Physician consultation: Chavez Morales MD was called at 16:05, was contacted at 16:05, cp regarding admission, patient's condition, wants outpatient management with oral anticoagulant and follow-up with primary physician. 17:45 ED course: VSS. Patient provided with supplemental oxygen for comfort. Patient cp continues to reports significant pain and inability to weight bear left lower extremity due to pain. Will admit for pain control and management of DVT/PE. 17:45 Physician consultation: Chavez Morales MD was called at 17:45, was contacted at 17:45, cp regarding admission, to the telemetry unit. patient's condition. 06/26 14:00 Order name: Basic Metabolic Panel; Complete Time: 15:38 06/26 15:38 Interpretation: Normal except: NA 135; GLUC 164; BUN 21; GFR 66. cp 06/26 14:00 Order name: CBC with Diff; Complete Time: 15:22 06/26 15:22 Interpretation: Normal except: WBC 13.50; RBC 4.91; HGB 16.0; HCT 46.4; MPV 6.9; HANS% cp 75.8; LYM% 13.3; NEUT A 10.3. 06/26 14:00 Order name: LFT's; Complete Time: 15:38 06/26 15:39 Interpretation: Normal except: ALK 120; ALB 3.1; GLOB 4.9; A/G 0.6. cp 06/26 14:00 Order name: Magnesium; Complete Time: 15:38 cp 06/26 14:00 Order name: NT PRO-BNP; Complete Time: 15:38 cp 06/26 14:00 Order name: PT-INR; Complete Time: 15:38 cp 06/26 13:33 Order name: US Extremity Venous Unilateral Ltd; Complete Time: 15:22 06/26 15:23 Interpretation: Report reviewed. 06/26 14:00 Order name: Troponin (emerg Dept Use Only); Complete Time: 15:38 06/26 15:38 Interpretation: Within normal limits: TROPED < 0.02. 06/26 14:00 Order name: XRAY Chest (1 view); Complete Time: 15:47 cp 06/26 14:09 Order name: COVID-19 : Document "Date of Symptom Onset" if Symptomatic. 06/26 14:44 Order name: CT Chest For PE Angio; Complete Time: 15:47 06/26 16:45 Order name: SARS-COV-2 RT PCR; Complete Time: 17:40 [facility] 06/26 14:00 Order name: EKG; Complete Time: 14:01 06/26 14:00 Order name: Cardiac monitoring; Complete Time: 15:10 06/26 14:00 Order name: EKG - Nurse/Tech; Complete Time: 16:26 06/26 14:00 Order name: IV Saline Lock; Complete Time: 15:10 06/26 14:00 Order name: Labs collected and sent; Complete Time: 15:08 06/26 14:00 Order name: O2 Per Protocol; Complete Time: 15:07 06/26 14:00 Order name: O2 Sat Monitoring; Complete Time: 15:08 06/26 15:57 Order name: Misc. Order: ambulate patient with pulse ox; Complete Time: 19:02 cp Administered Medications: 14:50 Drug: morphine 4 mg Route: IM; Site: left deltoid; dm14 19:29 Follow up: Response: No adverse reaction dm14 16:50 Drug: fentaNYL (PF) 25 mcg Route: IVP; Site: right antecubital; dm14 19:30 Follow up: Response: No adverse reaction; Pain is decreased dm14 17:30 Drug: Xarelto 15 mg Route: PO; dm14 19:30 Follow up: Response: No adverse reaction dm14 Disposition: 06/26/20 18:04 Hospitalization ordered by Chavez Morales for Inpatient Admission. Preliminary diagnosis are Pulmonary embolism without acute cor pulmonale, Acute embolism and thrombosis of deep veins of lower extremity - left. - Bed requested for Telemetry/MedSurg (Inpatient). - Status is Inpatient Admission. rv - Condition is Stable. - Problem is new. - Symptoms have improved. Addendum: 06/28/2020 09:14 Co-signature as Attending Physician, Yariel Page MD I agree with the assessment and k dr plan of care. Signatures: Dispatcher [employer] EDSD Yariel Page MD MD kdr Attema, Lee, DESIZING MACHINE OPERATOR-C DESIZING MACHINE OPERATOR-Cla1 Juan Carlos Kern PA PA cp Garcia, Cindy, TASHIA RN Ismael Hernandez RN RN rv Jovana Ramírez RN RN dm14 Corrections: (The following items were deleted from the chart) 06/26 16:02 14:09 CORONAVIRUS ordered. EDMS EDMS 19:39 18:04 Hospitalization Ordered by Chavez Morales MD for Inpatient Admission. Preliminary cg diagnosis is Pulmonary embolism without acute cor pulmonale; Acute embolism and thrombosis of deep veins of lower extremity - left. Bed requested for Telemetry/MedSurg (Inpatient). Status is Inpatient Admission. Condition is Stable. Problem is new. Symptoms have improved. cp 20:13 19:39 06/26/2020 18:04 Hospitalization Ordered by Chavez Morales MD for Inpatient rv Admission. Preliminary diagnosis is Pulmonary embolism without acute cor pulmonale; Acute embolism and thrombosis of deep veins of lower extremity - left. Bed requested for Telemetry/MedSurg (Inpatient). Status is Inpatient Admission. Condition is Stable. Problem is new. Symptoms have improved. cg
--- NOTE | 2020-06-26 19:39 | P.HP ---
Certification for Inpatient Patient admitted to: Observation With expected LOS: <2 Midnights Patient will require the following post-hospital care: None Practitioner: I am a practitioner with admitting privileges, knowledge of patient current condition, hospital course, and medical plan of care. Services: Services provided to patient in accordance with Admission requirements found in Title 42 Section 412.3 of the Code of Federal Regulations <Jhonny Tinoco - Last Filed: 06/26/20 19:33> Patient History Date of Service: 06/26/20 Primary Care Provider: DR. Ramey Reason for admission: DVT/PE History of Present Illness: 59-year-old female with history of congestive heart failure, COPD, hypertension, hyperlipidemia, hypothyroidism, history of DVT/PE presents emergency department for left lower extremity pain and shortness of breath. Patient reports increasing left lower extremity pain over the course of the last 1-2 weeks. Patient also reports that over the course of the last 6 or more months she has had dyspnea on exertion and having trouble getting around her house, reports that she has been not compliant with her Lasix as she has so much difficulty getting to the bathroom. Evaluation in the emergency department significant for CTA demonstrating right-sided pulmonary embolism in the branches of the right lower and right middle lobe arteries, acute thrombus the left superficial femoral left popliteal and left posterior tibial veins. Chest x-ray unremarkable. Labs significant for mildly elevated glucose 164 white blood cell count 13.5, hemoglobin 16 hematocrit 46.4 patient was given Xarelto in the emergency department, there was an attempt to ambulate patient to determine if she would need oxygen but patient unable to ambulate due to weakness, shortness of breath, significant pain to the left lower extremity, for this reason ED provider wishes to admit under observation for further evaluation and management. When I saw the patient in the ER she is awake, alert, oriented x3. Patient reports she has had a lot of difficulty getting around at home has been bed-bound over the course of the last 3-4 days. Reports history of DVT/PE to the same extremity and 2004, unknown why all and does have some periods of immobility at home. Patient also reported that she had a problem with some sort of lump in her pelvic area, this was examined noted to the area of the left labia there is a small area that may previously been an abscess noted, patient reports approximately 3-4 days ago and began draining on its own and was draining primarily blood, at this time area is without redness, surrounding cellulitis, no swelling noted. - Past Medical/Surgical History Diabetic: No -: COPD -: Hypothyroidism -: Morbid Obesity -: Hepatitis C -: Chronic pain -: Anxiety -: Tobacco abuse -: CHF -: Hernia repair -: Lap. Band surgery 2009 Psychosocial/ Personal History: Single - Family History Mother -: Lung disease Notes: DVT Father -: Cancer - Social History Smoking Status: Current every day smoker Counseled patient to stop smoking for: less than 10 minutes Smoking therapy provided: Yes Alcohol use: Yes CD- Drugs: No Caffeine use: Yes Place of Residence: Home <Jhonny Tinoco - Last Filed: 06/26/20 19:33> Date of Service: 06/28/20 <Chavez Morales - Last Filed: 06/28/20 12:29> Allergies levofloxacin [From Levaquin] Allergy (Intermediate, Verified 09/28/12 22:09) Hives/Rash Penicillins Allergy (Intermediate, Verified 09/28/12 22:09) Itching/Hives/Rash lorazepam [From Ativan] Adverse Reaction (Intermediate, Verified 09/28/12 22:09) Nausea/Vomiting Home Medications: Aspirin 81 mg PO DAILY 04/23/13 Rosuvastatin [Crestor*] 5 mg PO BEDTIME 04/23/13 Amitriptyline [Elavil*] 50 mg PO BEDTIME 06/26/20 Levothyroxine [Synthroid*] 50 mcg PO DAILY 06/26/20 Review of Systems 10-point ROS is otherwise unremarkable General: Weakness, As per HPI Respiratory: Cough, Shortness of Breath, SOB with Excertion, Pleuritic Pain Cardiovascular: As per HPI Musculoskeletal: Leg Pain (Left lower extremity pain) Neurological: Weakness, As per HPI <Jhonny Tinoco - Last Filed: 06/26/20 19:33> Physical Examination - Physical Exam General: Alert, In no apparent distress, Oriented x3, Obese HEENT: Atraumatic, Normocephalic, Mucous membr. moist/pink Neck: Supple Respiratory: Diminished (Bilaterally) Cardiovascular: No edema, Regular rate/rhythm, Normal S1 S2 Capillary refill: <2 Seconds Gastrointestinal: Normal bowel sounds, No tenderness, No masses, No rebound Musculoskeletal: No contractures, No erythema, No tenderness Integumentary: No significant lesion, No tenderness/swelling, No erythema Neurological: Normal speech, Normal strength at 5/5 x4 extr, Normal tone, Sensation intact - Studies Laboratory Data (last 24 hrs) 06/26/20 14:54: PT 12.0, INR 1.04 06/26/20 14:54: WBC 13.50 H, Hgb 16.0 H, Hct 46.4 H, Plt Count 343 06/26/20 14:54: Sodium 135 L, Potassium 4.2, BUN 21 H, Creatinine 0.88, Glucose 164 H, Magnesium 2.1, Total Bilirubin 0.3, AST 15, ALT 19, Alkaline Phosphatase 120 H <Jhonny Tinoco - Last Filed: 06/26/20 19:33> - Studies Laboratory Data (last 24 hrs) 06/27/20 14:45: APTT 118.6 H* <Chavez Morales - Last Filed: 06/28/20 12:29> Assessment and Plan - Plan Assessment DVT left lower extremity, PE right middle and lower lobe arteries COPD secondary to tobacco abuse Chronic CHF and no recent echocardiogram Hyperglycemia -patient reports borderline diabetic Hypertension Hyperlipidemia Hypothyroidism Plan DVT left lower extremity, PE right middle and lower lobe arteries: Patient reports significant pain to left lower extremity, unable to ambulate effectively, reports she has been bed-bound for last 2-3 days due to pain and increased shortness of breath with exertion. Will continue with Xarelto, physical therapy evaluation with daily room air saturations and room air sa turations for home oxygen. Pulmonology consult placed. P.r.n. pain medications. Patient might benefit from home health/physical therapy. COPD secondary to tobacco abuse: Discussed tobacco cessation, will obtain and continue home medications. Appears stable at this time without wheezing. Chronic CHF and no recent echocardiogram: Patient reports history of CHF last echocardiogram 2012 with normal EF, appears stable at this time without volume overload. Hyperglycemia -patient reports borderline diabetic: Patient reports she is borderline diabetic not taking any medications, blood sugar 160 in the ER, A1c with morning labs, sliding scale and ADA diet. Hyperlipidemia: Obtain and continue home med Hypothyroidism: Obtain and continue home med, thyroid panel morning labs Discharge Plan: Home Plan to discharge in: 24 Hours - Advance Directives Does patient have a Living Will: No Does patient have a Durable POA for Healthcare: No - Code Status/Comfort Care Code Status Assessed: Yes (Full code) Critical Care: No Time Spent Managing Pts Care (In Minutes): 55 <Jhonny Tinoco - Last Filed: 06/26/20 19:33> - Plan Plan of care reviewed as noted above by Jhonny Tinoco. LLE DVT, R PE noted. h/o COPD, CHF, hyperglycemia - not compliant xarelto, pain control, oxygen if needed <Chavez Morales - Last Filed: 06/28/20 12:29>
[2020-06-26] MEDS ORDERED: MELATONIN 5 MG TABLET PO PRN (20:26)
[2020-06-26] MEDS ORDERED: ONDANSETRON 4 MG/2 ML VIAL IV PRN (20:26)
[2020-06-26] MEDS ORDERED: TRAMADOL HCL 50 MG TAB PO PRN (20:26)
[2020-06-26] MEDS: INSULIN -REGULAR HUMAN 50 UNIT/0.5 ML ML SQ SCH (21:00)
[2020-06-26] MEDS: HYDROCODONE/APAP 7.5/325 MG TAB PO PRN (21:40)
[2020-06-26 21:56] VITALS: BMI 47.3
[2020-06-26] MEDS ORDERED: AMITRIPTYLINE 50 MG TAB ONE (22:27)
[2020-06-26] MEDS ORDERED: ROSUVASTATIN 10 MG TAB ONE (22:29)
[2020-06-27 01:27] LABS: Urine Appearance CLEAR; Urine Bilirubin NEGATIVE (NEG); Urine Blood NEGATIVE (NEG); Urine Color YELLOW; Urine Glucose NEGATIVE (NEG); Urine Protein NEGATIVE (NEG); Urine Specific Gravity 1.015 (1.005-1.030); Urine Urobilinogen 0.2 mg/dL (0.2-1.0)
[2020-06-27 01:32] LABS: Urine Microscopic Reflex NO UMIC
[2020-06-27] MEDS: HYDROCODONE/APAP 7.5/325 MG TAB PO PRN ×4 (04:18→23:19)
[2020-06-27 05:51] LABS: Absolute Lymphocytes (CBC) 1.5 K/uL (0.7-4.9); Basophils % 1.2 % (0-1.3); Hematocrit 44.3 % (36.0-45.0); Lymphocytes % 15.7 % (15.3-44.8); MPV 7.1 fL (7.6-11.3); RBC Red Blood Cell Count 4.61 M/uL (3.86-4.86)
[2020-06-27] MEDS: LEVOTHYROXINE SOD 0.05 MG TABLET PO SCH (06:00)
[2020-06-27 06:15] LABS: ALT/SGPT 17 U/L (12-78); AST/SGOT 10 U/L (15-37); Albumin 2.9 g/dL (3.4-5.0); Alkaline Phosphatase 109 U/L (45-117); BUN Blood Urea Nitrogen 16 mg/dL (7-18); Bicarbonate 29 mmol/L (21-32); Bilirubin Total 0.4 mg/dL (0.2-1.0); Glucose Level 154 mg/dL (74-106); HDL Cholesterol 53 mg/dL (40-60); LDL Cholesterol, Calculated 41 (<130); Magnesium 2.2 mg/dL (1.8-2.4); Potassium 4.3 mmol/L (3.5-5.1); Protein, Total 7.4 g/dL (6.4-8.2); Sodium Level 138 mmol/L (136-145); Thyroid Stimulating Hormone 0.702 uIU/mL (0.360-3.740); Troponin I < 0.02 ng/mL (0.0-0.045)
[2020-06-27] MEDS: INSULIN -REGULAR HUMAN 50 UNIT/0.5 ML ML SQ SCH ×4 (07:30→21:23)
[2020-06-27] MEDS: FUROSEMIDE 40 MG TABLET PO SCH (09:51)
[2020-06-27] MEDS ORDERED: HEPARIN/D5W 25,000 UNIT/500 ML BAG IV PRN (10:18)
[2020-06-27 11:00] LABS: Protime INR 1.19
--- NOTE | 2020-06-27 15:54 | P.PN ---
Subjective Date of Service: 06/27/20 Primary Care Provider: DR. Ramey Chief Complaint: DVT/PE Subjective: No new changes (still reports severe L foot pain, swelling maybe slightly better. states can't walk due to pain) Review of Systems 10-point ROS is otherwise unremarkable Physical Examination - Vital Signs Temperature: 97.2 F Blood Pressure: 117/61 Pulse: 89 Respirations: 20 Pulse Ox (%): 95 Assessment & Plan Physician Review Additional Text: Physical exam Gen: NAD, morbidly obese HEENT: Normal conjunctiva, sclerae anicteric CV: Regular rate and rhythm Pulm: Clear to auscultation bilaterally, slightly diminished at bases bilaterally Abd: soft, NTND Ext: LLE: mild swelling from knee down to ankle, soft, 2+ DP pulse on left, warm/well-perfused. TTP along dorsal foot and LLE. L calf tenderness Problem list DVT left lower extremity, PE right middle and lower lobe arteries COPD secondary to tobacco abuse Chronic CHF and no recent echocardiogram Hyperglycemia -patient reports borderline diabetic Hypertension Hyperlipidemia Hypothyroidism Plan DVT left lower extremity, PE right middle and lower lobe arteries: Patient reports significant pain to left lower extremity, unable to ambulate effectively, reports she has been bed-bound for last 2-3 days due to pain and increased shortness of breath with exertion. switch to Heparin drip for now, xarelto on discharge elevate foot PRN pain medication (PO) PT ordered patient on room air - do not suspect she will need oxygen, but will obtain RA sats, ambulator Sats if possible patient had prior provoked DVT, was in wheelchair for 2-3 months Other chronic medical conditions (COPD, diastolic CHF, hyperglycemia, HLD, hypothyroidism) continue home medicatiosn VTE: heparin drip Code: full Dispo: anticipate dc home in next 24 hrs Time Spent Managing Pts Care (In Minutes): 35
[2020-06-27] MEDS ORDERED: RIVAROXABAN 15 MG TABLET PO SCH (17:00)
[2020-06-27] MEDS ORDERED: ROSUVASTATIN 10 MG TAB PO SCH (21:00)
[2020-06-27] MEDS ORDERED: AMITRIPTYLINE 50 MG TAB PO SCH (21:00)
[2020-06-27] MEDS: AMITRIPTYLINE 50 MG TAB PO SCH (21:22)
[2020-06-27] MEDS: ROSUVASTATIN 10 MG TAB PO SCH (21:23)
[2020-06-27] MEDS: RIVAROXABAN 15 MG TABLET PO SCH (23:19)
[2020-06-28] MEDS: LEVOTHYROXINE SOD 0.05 MG TABLET PO SCH (06:00)
[2020-06-28] MEDS ORDERED: ALBUTEROL 2.5 MG/3 ML NEB SOL NEB PRN ×2 (06:06→14:00)
[2020-06-28] MEDS: HYDROCODONE/APAP 7.5/325 MG TAB PO PRN (06:12)
[2020-06-28 06:31] LABS: Absolute Lymphocytes (CBC) 1.9 K/uL (0.7-4.9); Basophils % 1.3 % (0-1.3); Hematocrit 42.3 % (36.0-45.0); Lymphocytes % 20.5 % (15.3-44.8); MPV 7.1 fL (7.6-11.3); Magnesium 2.1 mg/dL (1.8-2.4); Potassium 3.9 mmol/L (3.5-5.1); RBC Red Blood Cell Count 4.43 M/uL (3.86-4.86)
[2020-06-28] MEDS: INSULIN -REGULAR HUMAN 50 UNIT/0.5 ML ML SQ SCH ×4 (07:30→21:12)
[2020-06-28] MEDS ORDERED: CODEINE 30MG/APAP 300MG TAB PO PRN (08:35)
[2020-06-28] MEDS: RIVAROXABAN 15 MG TABLET PO SCH ×2 (08:46→21:11)
[2020-06-28] MEDS: FUROSEMIDE 40 MG TABLET PO SCH (08:46)
[2020-06-28] MEDS ORDERED: IPRATROPIUM BROM 0.5MG/2.5ML NEB PRN (10:12)
--- NOTE | 2020-06-28 10:12 | P.PN ---
Subjective Date of Service: 06/28/20 Primary Care Provider: DR. Ramey Chief Complaint: DVT/PE Subjective: Improving (swelling slightly improved. pain improved with medication. minimal ambulation due to pain. refused to work with PT yesterday. Hypoxic overnight to mid 80s) Review of Systems 10-point ROS is otherwise unremarkable Physical Examination - Vital Signs Temperature: 96.8 F Blood Pressure: 119/77 Pulse: 93 Respirations: 17 Pulse Ox (%): 92 - Studies Laboratory Data (last 24 hrs) 06/27/20 14:45: APTT 118.6 H* 06/27/20 10:42: PT 13.7 H, INR 1.19, APTT 32.6 06/27/20 10:30: APTT Cancelled Assessment & Plan Physician Review Additional Text: Physical exam Gen: NAD, morbidly obese HEENT: Normal conjunctiva, sclerae anicteric CV: Regular rate and rhythm Pulm: slightly diminished at bases bilaterally, slight wheeze Abd: soft, NTND Ext: LLE: mild swelling from knee down to ankle, soft, 2+ DP pulse on left, warm/well-perfused. TTP along dorsal foot and LLE. mild L calf tenderness Problem list DVT left lower extremity, PE right middle and lower lobe arteries COPD secondary to tobacco abuse Chronic CHF and no recent echocardiogram ROHIT Hyperglycemia -patient reports borderline diabetic Hypertension Hyperlipidemia Hypothyroidism LLE swelling / pain improving off hep drip, on xarelto now, will need to confirm coverage of medications prior to discharge elevate foot pulm consulted, recommend compression stockings PT ordered PRN pain medication - Tyleno #3 hypoxic overnight - will consult executive secretary social welfare for home O2 pt with h/o ROHIT previously and prescribed CPAP Other chronic medical conditions (COPD, diastolic CHF, hyperglycemia, HLD, hypothyroidism) continue home medications VTE: xarelto Code: full Dispo: anticipate dc home in 1-2 days, needs home O2 Time Spent Managing Pts Care (In Minutes): 35
[2020-06-28] MEDS: ARFORMOTEROL TARTRATE 15 MCG/2 ML VIAL.NEB NEB SCH ×2 (10:30→21:25)
[2020-06-28] MEDS: predniSONE 10 MG TAB PO SCH ×2 (12:47→21:11)
[2020-06-28] MEDS: HYDROCODONE/APAP 5/325 MG TAB PO PRN (15:10)
[2020-06-28] MEDS: ROSUVASTATIN 10 MG TAB PO SCH (21:11)
[2020-06-28] MEDS: AMITRIPTYLINE 50 MG TAB PO SCH (21:12)
[2020-06-28] MEDS: TRAMADOL HCL 50 MG TAB PO PRN (21:17)
[2020-06-29] MEDS: LEVOTHYROXINE SOD 0.05 MG TABLET PO SCH (06:00)
[2020-06-29] MEDS: INSULIN -REGULAR HUMAN 50 UNIT/0.5 ML ML SQ SCH ×4 (07:30→21:58)
[2020-06-29] MEDS: ARFORMOTEROL TARTRATE 15 MCG/2 ML VIAL.NEB NEB SCH ×2 (08:28→23:50)
[2020-06-29] MEDS: RIVAROXABAN 15 MG TABLET PO SCH ×2 (08:43→21:17)
[2020-06-29] MEDS: HYDROCODONE/APAP 5/325 MG TAB PO PRN (08:44)
[2020-06-29] MEDS: predniSONE 10 MG TAB PO SCH ×2 (08:44→21:17)
[2020-06-29] MEDS: FUROSEMIDE 40 MG TABLET PO SCH (08:44)
[2020-06-29] MEDS: METFORMIN HCL 500 MG TAB PO SCH ×2 (08:45→18:00)
[2020-06-29] MEDS ORDERED: ALPRAZOLAM 1 MG TABLET PO ONE (13:14)
[2020-06-29] MEDS: NICOTINE 14 MG/PAT TD SCH (14:49)
--- NOTE | 2020-06-29 16:34 | P.PN ---
Subjective Date of Service: 06/29/20 Primary Care Provider: DR. Ramey Chief Complaint: DVT/PE Subjective: Improving (pt reports mild improvement in swelling and pain. still states she is requiring pain medication frequently and can't bear much weight - even for 1 step. She is hopeful to get a wheelchair) Review of Systems 10-point ROS is otherwise unremarkable Physical Examination - Vital Signs Temperature: 97.5 F Blood Pressure: 101/58 Pulse: 68 Respirations: 18 Pulse Ox (%): 95 Assessment & Plan Physician Review Additional Text: Physical exam Gen: NAD, morbidly obese HEENT: Normal conjunctiva, sclerae anicteric CV: Regular rate and rhythm Pulm: slightly diminished at bases bilaterally, slight wheeze Abd: soft, NTND Ext: LLE: mild swelling from knee down to ankle, soft, 2+ DP pulse on left, warm/well-perfused. mild TTP along dorsal foot and LLE. minimal L calf tenderness Problem list DVT left lower extremity, PE right middle and lower lobe arteries COPD secondary to tobacco abuse Chronic CHF and no recent echocardiogram ROHIT Hyperglycemia -patient reports borderline diabetic Hypertension Hyperlipidemia Hypothyroidism LLE swelling / pain improving ; confirmed today - insurance will cover Xarelto - her pharmacy is out of stock and will have tomorrow pulm consulted, recommend compression stockings elevate foot, compression stocking ordered PT ordered - pt refused PRN pain medication - Tylenol #3; pt with h/o chronic pain use, opioid dependence, avoiding stronger medication. pt seems comfortable when not ambulating hypoxic overnight - will consult marriage and family social worker for home O2 pt with h/o ROHIT previously and prescribed CPAP Other chronic medical conditions (COPD, diastolic CHF, hyperglycemia, HLD, hypothyroidism) continue home medications VTE: xarelto Code: full Dispo: anticipate dc home in 1-2 days, needs home o2 set up, wheelchair /improved ambulation Time Spent Managing Pts Care (In Minutes): 35
[2020-06-29] MEDS ORDERED: GLUCAGON 1 MG/VIAL IM PRN (16:35)
[2020-06-29] MEDS ORDERED: INSULIN 70/30 100 UNITS/ML SQ SCH (17:00)
[2020-06-29] MEDS ORDERED: D50W 25 GM/50 ML VIAL IV PRN (17:11)
--- NOTE | 2020-06-29 17:13 | P.CNS ---
Date of Consult: 06/29/20 Primary Care Provider: DR. Ramey Chief Complaint: DVT/PE History of Present Illness: patient is 59 years of age well known to me multiple medical problems admitted with swelling of her left leg beach became progressively worse was diagnosed to have pulmonary embolism with a left-sided DVT still complaining of some discomfort in the left leg unable to bear weight shortness of breath has improved history of obstructive airways disease Allergies levofloxacin [From Levaquin] Allergy (Intermediate, Verified 09/28/12 22:09) Hives/Rash Penicillins Allergy (Intermediate, Verified 09/28/12 22:09) Itching/Hives/Rash lorazepam [From Ativan] Adverse Reaction (Intermediate, Verified 09/28/12 22:09) Nausea/Vomiting Home Medications: Aspirin 81 mg PO DAILY 04/23/13 Rosuvastatin [Crestor*] 5 mg PO BEDTIME 04/23/13 Amitriptyline [Elavil*] 50 mg PO BEDTIME 06/26/20 Levothyroxine [Synthroid*] 50 mcg PO DAILY 06/26/20 Rivaroxaban [Xarelto] 1 each PO SEECOM 30 Days #1 tab.ds.pk 06/29/20 - Past Medical/Surgical History Diabetic: No -: COPD -: Hypothyroidism -: Morbid Obesity -: Hepatitis C -: Chronic pain -: Anxiety -: Tobacco abuse -: CHF -: Hernia repair -: Lap. Band surgery 2009 Psychosocial/ Personal History: Single - Family History Mother Medical History: Heart disease, Lung disease, Other (see notes) Notes: DVT, COPD Father Medical History: Cancer - Social History Smoking Status: Current every day smoker Alcohol use: Yes CD- Drugs: No Caffeine use: No Place of Residence: Home Review of Systems General: Weakness Respiratory: Shortness of Breath Physical Examination Temp Pulse Resp BP Pulse Ox 97.5 F 68 18 101/58 L 95 06/29/20 16:34 06/29/20 16:34 06/29/20 16:34 06/29/20 16:34 06/29/20 16:34 General: Alert, In no apparent distress, Oriented x3 Neck: Supple Respiratory: Clear to auscultation bilaterally Cardiovascular: No edema, Normal S1 S2 Musculoskeletal: Other ( left leg is significantly more swollen than the right) - Problems (1) DVT (deep venous thrombosis) Current Visit: Yes Status: Acute Plan: patient is 59 years of age with admitted with left-sided DVT pulmonary embolism shortness of breath is improved still complains of discomfort in the left leg was setup for home oxygen of ordered a compression stocking for her continue with the full anticoagulation labs reviewed vital signs reviewed significant desat and with sleeping non compliant with CPAP possible discharge tomorrow lifelong anticoagulation continue was a alter 50 mg twice a day for 3 weeks then 20 mg daily for indefinite and anticoagulation the reduce to 10 mg in about 6 months stable for discharge patient to resume her home medications and diuretics for with me in 2 weeks
[2020-06-29] MEDS: ROSUVASTATIN 10 MG TAB PO SCH (21:17)
[2020-06-29] MEDS: AMITRIPTYLINE 50 MG TAB PO SCH (21:17)
[2020-06-29] MEDS: TRAMADOL HCL 50 MG TAB PO PRN (21:18)
[2020-06-30] MEDS: LEVOTHYROXINE SOD 0.05 MG TABLET PO SCH (06:26)
[2020-06-30] MEDS: TRAMADOL HCL 50 MG TAB PO PRN (06:26)
[2020-06-30] MEDS: INSULIN -REGULAR HUMAN 50 UNIT/0.5 ML ML SQ SCH ×2 (07:30→11:30)
[2020-06-30] MEDS: NICOTINE 14 MG/PAT TD SCH (08:34)
[2020-06-30] MEDS: METFORMIN HCL 500 MG TAB PO SCH (08:34)
[2020-06-30] MEDS: predniSONE 10 MG TAB PO SCH (08:34)
[2020-06-30] MEDS: FUROSEMIDE 40 MG TABLET PO SCH (08:34)
[2020-06-30] MEDS: RIVAROXABAN 15 MG TABLET PO SCH (08:34)
[2020-06-30] MEDS: ARFORMOTEROL TARTRATE 15 MCG/2 ML VIAL.NEB NEB SCH (08:45)
[2020-06-30 09:12] VITALS: O2SAT 96
--- NOTE | 2020-06-30 13:06 | P.DS ---
Admission Date: 06/27/20 Discharge Date: 06/30/20 Primary Care Provider: DR. Ramey Disposition: ROUTINE DISCHARGE Discharge Condition: GOOD Reason for Admission: DVT/PE Consultations: Pulmomary-Dr. Quiroz. - Problems (1) Pulmonary embolus Current Visit: Yes Status: Acute (2) DVT (deep venous thrombosis) Current Visit: Yes Status: Acute (3) COPD exacerbation Current Visit: Yes Status: Acute (4) Chronic systolic heart failure Current Visit: Yes Status: Acute (5) Tobacco use Current Visit: Yes Status: Acute (6) Hypothyroidism Current Visit: Yes Status: Acute Brief History of Present Illness: 59-year-old woman with a history of systolic heart failure, COPD, hypertension, hyperlipidemia, hypothyroidism, history of DVT and PE presented to the emergency department with a complaint of increased left lower extremity swelling and pain and shortness of breath. Patient reports increased swelling of the left lower extremity over the past 1-2 weeks. She also reported feeling more dyspneic and having trouble getting around the house. CTA thorax done in the emergency department reported right-sided pulmonary embolism. Venous Doppler of the lower extremity also demonstrated acute thrombosis in the left superficial femoral left popliteal and left posterior tibial veins. Lab showed mildly elevated glucose level, WBC count of 13.5. Patient could not ambulate in the ED due to pain. She was wheezing and requiring oxygen in the ED. Patient was admitted for further management. Hospital Course: Patient admitted to the medical floor and continued on oral Xarelto. She was also started on scheduled nebulizers and steroid for COPD exacerbation. Patient was complaining of pain in the lower extremities and difficulty with ambulating. Her lower extremity swelling gradually improved with treatment. Patient noted to experience nocturnal hypoxemia. Patient was seen in consultation by pulmonary. She was placed on scheduled Brovana for COPD. Smoking cessation advice. Patient qualifies for home oxygen to be used during sleep. She has clinically improved and deemed stable for discharge. Vital Signs/Physical Exam: Temp Pulse Resp BP Pulse Ox 97.2 F 65 18 120/74 94 06/30/20 08:00 06/30/20 08:00 06/30/20 08:00 06/30/20 08:00 06/30/20 08:00 General: Alert, In no apparent distress, Oriented x3 HEENT: Mucous membr. moist/pink Neck: Supple Respiratory: Clear to auscultation bilaterally, Normal air movement Cardiovascular: Regular rate/rhythm, Normal S1 S2, Edema (Mild edema of lower extremities, left greater than right.) Gastrointestinal: Normal bowel sounds, Soft and benign, Non-distended Integumentary: Erythema (Mild erythema left foot) Neurological: Normal strength at 5/5 x4 extr, Cranial nerves 3-12 intact Laboratory Data at Discharge: WBC 9.10 K/uL (4.3-10.9) 06/28/20 05:48 Hgb 14.5 g/dL (12.0-15.0) 06/28/20 05:48 Hct 42.3 % (36.0-45.0) 06/28/20 05:48 Plt Count 372 K/uL (152-406) 06/28/20 05:48 PT 13.7 SECONDS (9.5-12.5) H 06/27/20 10:42 INR 1.19 06/27/20 10:42 APTT 52.1 SECONDS (24.3-36.9) H 06/27/20 22:51 Sodium 137 mmol/L (136-145) 06/28/20 05:48 Potassium 3.9 mmol/L (3.5-5.1) 06/28/20 05:48 BUN 14 mg/dL (7-18) 06/28/20 05:48 Creatinine 0.71 mg/dL (0.55-1.3) 06/28/20 05:48 Glucose 140 mg/dL (74-106) H 06/28/20 05:48 Magnesium 2.1 mg/dL (1.8-2.4) 06/28/20 05:48 Total Bilirubin 0.4 mg/dL (0.2-1.0) 06/27/20 05:21 AST 10 U/L (15-37) L 06/27/20 05:21 ALT 17 U/L (12-78) 06/27/20 05:21 Alkaline Phosphatase 109 U/L (45-117) 06/27/20 05:21 Troponin I < 0.02 ng/mL (0.0-0.045) 06/27/20 05:21 Triglycerides 124 mg/dL (<150) 06/27/20 05:21 Cholesterol 119 mg/dL (<200) 06/27/20 05:21 HDL Cholesterol 53 mg/dL (40-60) 06/27/20 05:21 Cholesterol/HDL Ratio 2.25 06/27/20 05:21 Home Medications: Rosuvastatin [Crestor*] 5 mg PO BEDTIME 04/23/13 Amitriptyline [Elavil*] 50 mg PO BEDTIME 06/26/20 Levothyroxine [Synthroid*] 50 mcg PO DAILY 06/26/20 Rivaroxaban [Xarelto] 1 each PO SEECOM 30 Days #1 tab.ds.pk 06/29/20 Albuterol Neb [Proventil 0.083% Neb Soln] 2.5 mg NEB [id number] PRN #60 amp 06/30/20 Arformoterol Tartrate [Brovana] 15 mcg NEB BIDRESP #60 vial.neb 06/30/20 Furosemide [Lasix*] 40 mg PO DAILY #30 tab 06/30/20 Ipratropium Neb [Atrovent*] 0.5 mg NEB [id number] PRN #120 amp 06/30/20 Metformin HCl [Glucophage*] 500 mg PO BIDWM #60 tab 06/30/20 Nebulizer [Aeroneb Go Nebulizer] 1 each MC QID #1 each 06/30/20 predniSONE [Deltasone*] 10 mg PO BID #6 tab 06/30/20 traMADol HCL [Ultram*] 50 mg PO Q6H PRN #30 tab 06/30/20 New Medications: Albuterol Neb [Proventil 0.083% Neb Soln] 2.5 mg NEB [id number] PRN #60 amp PRN Reason: Shortness Of Breath Ipratropium Neb [Atrovent*] 0.5 mg NEB [id number] PRN #120 amp PRN Reason: Shortness Of Breath Nebulizer [Aeroneb Go Nebulizer] 1 each QID #1 each Arformoterol Tartrate [Brovana] 15 mcg NEB BIDRESP #60 vial.neb predniSONE [Deltasone*] 10 mg PO BID #6 tab Metformin HCl [Glucophage*] 500 mg PO BIDWM #60 tab Furosemide [Lasix*] 40 mg PO DAILY #30 tab traMADol HCL [Ultram*] 50 mg PO Q6H PRN #30 tab PRN Reason: Pain Scale 5-7 (Moderate) Rivaroxaban [Xarelto] 1 each PO SEECOM 30 Days #1 tab.ds.pk Followup: NONE,NONE [Primary Care Provider] - 1 Week Time spent managing pt's care (in minutes): 36
[2020-06-30 14:10] VITALS: BP 114/77; TEMP 97.9
== END 2020-06-30 14:45 | disposition home or self-care (01) | DRG 299 ==
LOC: ER 13:13 → ERHOLD 19:06 → 2ND 19:54 → OBSVTOIN 06-27 18:21
PROVIDERS: ADMIT Hospitalist; ATTEND Internal Medicine
DX: I82.412 Acute embolism and thrombosis of left femoral vein (principal); I26.99 Other pulmonary embolism without acute cor pulmonale; Z68.42 Body mass index [BMI] 45.0-49.9, adult; J44.1 Chronic obstructive pulmonary disease with (acute) exacerbation; I50.22 Chronic systolic (congestive) heart failure; I11.0 Hypertensive heart disease with heart failure; I82.432 Acute embolism and thrombosis of left popliteal vein; I82.442 Acute embolism and thrombosis of left tibial vein; E66.01 Morbid (severe) obesity due to excess calories; E03.9 Hypothyroidism, unspecified; I25.2 Old myocardial infarction; F17.210 Nicotine dependence, cigarettes, uncomplicated; E78.5 Hyperlipidemia, unspecified; G47.33 Obstructive sleep apnea (adult) (pediatric); R73.9 Hyperglycemia, unspecified; Z91.19 Patient's noncompliance with other medical treatment and regimen; Z79.82 Long term (current) use of aspirin; Z79.890 Hormone replacement therapy; Z88.0 Allergy status to penicillin; Z79.01 Long term (current) use of anticoagulants; Z79.899 Other long term (current) drug therapy; Z53.29 Procedure and treatment not carried out because of patient's decision for other reasons; Z86.711 Personal history of pulmonary embolism; Z79.52 Long term (current) use of systemic steroids; Z88.1 Allergy status to other antibiotic agents; Z86.718 Personal history of other venous thrombosis and embolism; Z20.822 Contact with and (suspected) exposure to COVID-19
CPT/HCPCS: 36415; 71045; 71275; 80048; 80053; 80061; 80076; 81003; 82565; 82947; 83036; 83735; 83880; 84439; 84443; 84484; 85025; 85610; 85730; 93005; 93971; 96372; 96374; 97161; 97530; 99285; G0378; J1644; J1815; J3010; J7512; J7605; Q9967; U0003